=== PATIENT | female | born 1955 | race Caucasian/White ===

== ENCOUNTER 2025-05-03 18:11 | Inpatient (IN) | payer MEDICARE, SELFPAY ==
[2025-05-03] VITALS (7 sets, daily range): BP systolic 138–162; BP diastolic 61–101; BMI 19.5; BMI 19.3
--- NOTE | 2025-05-03 13:21 | ED.GENMED ---
History of Present Illness
<Giuliana Gurrola PA-C - Last Filed: 05/03/25 17:16>
General
Chief Complaint: Abdominal Symptoms
Source: patient
Exam Limitations: none
Time Seen by Provider: 05/03/25 13:10
History of Present Illness
History of Present Illness:
69yoF with a history of anxiety and GERD presenting for evaluation of abdominal pain. Patient has been experiencing epigastric discomfort for several years for which she takes Prilosec OTC. Her pain started to worsen over the past several weeks.
Her epigastric pain is constant but her pain intermittently radiates to the right upper quadrant and right shoulder region. Her right upper quadrant pain has occurred twice after eating beef. She is also having intermittent nausea and vomiting
with increased belching. She started to notice that her urine appeared dark 2 days ago. She denies any chest pain, shortness of breath, fevers. No prior abdominal surgeries.
Phy Exam
<Giuliana Gurrola PA-C - Last Filed: 05/03/25 17:16>
General Physical Exam
General Presentation: well appearing and no apparent distress
General Skin: warm and dry
General Habitus: normal
General Mental: alert
ENT Exam
ENT Exam: normocephalic
Cardiovascular Exam
Cardiovascular Exam: regular rate/rhythm
Pulmonary Exam
Pulmonary Exam: lungs clear, no respiratory distress, no rales, no crackles, no rhonchi and no wheezing
Gastrointestinal Exam
Gastrointestinal Exam: soft, non distended and other (+Tenderness in epigastric and RUQ. Abdomen soft, non-distended. No rebound or guarding.)
Neurological Exam
Neurological Exam: alert
Jose Coma Scale
Eye Opening: Spontaneous
Verbal Response: Oriented
Motor Response: Obeys Commands
GCS Total Score: 15
Skin Exam
Skin Exam: normal color and warm/dry
Psychiatric Exam
Psychiatric Exam: normal mood/affect
Course
<Giuliana Gurrola PA-C - Last Filed: 05/03/25 17:16>
Orders/Labs/Results
Orders:
Orders
05/03/25 13:06
Electrocardiogram (*1) Urgent
Reason for Study: Abdominal Pain
EKG- Treatment ONCE
05/03/25 13:31
CT Abd/pel W Iv And Oral Contr Urgent
Comment:
Reason For Exam: epigastric, RUQ pain
Iohexol [Omnipaque] See Protocol PO NOW STA
05/03/25 13:36
Complete Blood Count/With Diff Urgent
Comprehensive Metabolic Panel Urgent
Lipase Urgent
Troponin I Urgent
Urinalysis Reflex To Culture Urgent
Date Specimen was Collected: 05/03/25
Time Specimen was Collected: 13:35
Urine Microscopic Reflex Cult Urgent
Urine Culture Urgent
SEVEN Source: U
Specimen Description:
Date Specimen was Collected: 05/03/25
Time Specimen was Collected: 13:35
05/03/25 13:40
Prothrombin Time Urgent
05/03/25 14:18
0.9% Sodium Chloride 1000 ml [Nss] 1,000 ml IV BOLUS
05/03/25 14:19
Ondansetron Injectable [Zofran] 4 mg IV NOW STA
05/03/25 15:01
CDIFF [C difficile Antigen & Toxins] Urgent
SEVEN Source: Feces/Stool
Specimen Description:
Date Specimen was Collected: 05/03/25
Time Specimen was Collected: 14:59
Norovirus by PCR Urgent
SEVEN Source: Feces/Stool
Specimen Description:
Date Specimen was Collected: 05/03/25
Time Specimen was Collected: 14:59
Stool Culture Urgent
SEVEN Source: Feces/Stool
Specimen Description:
Date Specimen was Collected: 05/03/25
Time Specimen was Collected: 14:59
05/03/25 17:04
Piperacillin/Tazo 4.5 Gram [Zosyn] 4.5 gram in 100 ml IV NOW
Abnormal Lab Results
05/03/25
13:36
Hgb 16.5 H g/dL
(12.0-16.0)
Hct 48.4 H %
(37.0-47.0)
MCH 32.8 H pg
(27.0-31.0)
Monocytes % 9.4 H %
(1.7-9.3)
Creatinine 0.5 L mg/dL
(0.6-1.0)
Total Bilirubin 4.1 H mg/dl
(0.2-1.3)
AST 235 H U/L
(14-36)
ALT 201 H U/L
(0-35)
Alkaline Phosphatase 321 H U/L
(38-126)
Urine Ketones 1+ A
(Negative)
Ur Occult Blood Reflex 1+ A
(Negative)
Urine Nitrite (Reflex) Positive A
(Negative)
Urine Bilirubin 3+ A
(Negative)
Urine Urobilinogen 3+ A
(Neg - 1+)
Leukocyte Esterase Rfl 2+ A
(Negative)
Urine RBC 7-10 A /HPF
(0-2)
Urine WBC (Reflex) 11-15 A /HPF
(0-5)
Urine Bacteria (Reflex) Moderate A
(Negative)
Urine Albumin (Reflex) 2+ A
(Neg - Trace)
05/03/25 13:36
05/03/25 13:36
Vital Signs
Initial and Last Documented VS:
Initial Vital Signs
Temp Pulse Resp BP Pulse Ox
97.9 F 69 18 146/61 97
05/03/25 13:01 05/03/25 13:01 05/03/25 13:01 05/03/25 13:01 05/03/25 13:01
Last Documented Vital Signs
Temp Pulse Resp BP Pulse Ox
97.7 F 69 18 146/101 95
05/03/25 17:00 05/03/25 17:00 05/03/25 17:00 05/03/25 17:00 05/03/25 17:00
<Jan Stewart MD - Last Filed: 05/03/25 17:12>
Orders/Labs/Results
Orders:
Orders
05/03/25 13:06
Electrocardiogram (*1) Urgent
Reason for Study: Abdominal Pain
EKG- Treatment ONCE
05/03/25 13:31
CT Abd/pel W Iv And Oral Contr Urgent
Comment:
Reason For Exam: epigastric, RUQ pain
Iohexol [Omnipaque] See Protocol PO NOW STA
05/03/25 13:36
Complete Blood Count/With Diff Urgent
Comprehensive Metabolic Panel Urgent
Lipase Urgent
Troponin I Urgent
Urinalysis Reflex To Culture Urgent
Date Specimen was Collected: 05/03/25
Time Specimen was Collected: 13:35
Urine Microscopic Reflex Cult Urgent
Urine Culture Urgent
SEVEN Source: U
Specimen Description:
Date Specimen was Collected: 05/03/25
Time Specimen was Collected: 13:35
05/03/25 13:40
Prothrombin Time Urgent
05/03/25 14:18
0.9% Sodium Chloride 1000 ml [Nss] 1,000 ml IV BOLUS
05/03/25 14:19
Ondansetron Injectable [Zofran] 4 mg IV NOW STA
05/03/25 15:01
CDIFF [C difficile Antigen & Toxins] Urgent
SEVEN Source: Feces/Stool
Specimen Description:
Date Specimen was Collected: 05/03/25
Time Specimen was Collected: 14:59
Norovirus by PCR Urgent
SEVEN Source: Feces/Stool
Specimen Description:
Date Specimen was Collected: 05/03/25
Time Specimen was Collected: 14:59
Stool Culture Urgent
SEVEN Source: Feces/Stool
Specimen Description:
Date Specimen was Collected: 05/03/25
Time Specimen was Collected: 14:59
05/03/25 17:04
Piperacillin/Tazo 4.5 Gram [Zosyn] 4.5 gram in 100 ml IV NOW
Abnormal Lab Results
05/03/25
13:36
Hgb 16.5 H g/dL
(12.0-16.0)
Hct 48.4 H %
(37.0-47.0)
MCH 32.8 H pg
(27.0-31.0)
Monocytes % 9.4 H %
(1.7-9.3)
Creatinine 0.5 L mg/dL
(0.6-1.0)
Total Bilirubin 4.1 H mg/dl
(0.2-1.3)
AST 235 H U/L
(14-36)
ALT 201 H U/L
(0-35)
Alkaline Phosphatase 321 H U/L
(38-126)
Urine Ketones 1+ A
(Negative)
Ur Occult Blood Reflex 1+ A
(Negative)
Urine Nitrite (Reflex) Positive A
(Negative)
Urine Bilirubin 3+ A
(Negative)
Urine Urobilinogen 3+ A
(Neg - 1+)
Leukocyte Esterase Rfl 2+ A
(Negative)
Urine RBC 7-10 A /HPF
(0-2)
Urine WBC (Reflex) 11-15 A /HPF
(0-5)
Urine Bacteria (Reflex) Moderate A
(Negative)
Urine Albumin (Reflex) 2+ A
(Neg - Trace)
05/03/25 13:36
05/03/25 13:36
Vital Signs
Initial and Last Documented VS:
Initial Vital Signs
Temp Pulse Resp BP Pulse Ox
97.9 F 69 18 146/61 97
05/03/25 13:01 05/03/25 13:01 05/03/25 13:01 05/03/25 13:01 05/03/25 13:01
Last Documented Vital Signs
Temp Pulse Resp BP Pulse Ox
97.7 F 69 18 146/101 95
05/03/25 17:00 05/03/25 17:00 05/03/25 17:00 05/03/25 17:00 05/03/25 17:00
<Giuliana Gurrola PA-C - Last Filed: 05/03/25 17:16>
MDM/Problems Addressed
Differential Diagnosis Includes:
69yoF here with epigastric pain x several years which has been worsening for a few weeks. Now intermittently migrating to the RUQ. Also noticed dark urine x 2 days. VSS. She is nontoxic-appearing. No signs of peritonitis on abdominal exam.
Differential diagnosis includes but is not limited to: Biliary colic, cholecystitis, pancreatitis, malignancy, peptic ulcer disease
Initial ED plan: Check abdominal labs, troponin/EKG, UA, and CT abdomen.
<Giuliana Gurrola PA-C - Last Filed: 05/03/25 17:16>
*Pulse Oximetry
SaO2: 97
Oxygen Mode of Delivery: Room air
Patient hypoxic: no
*EKG
Interpreted by ED Provider?: Yes
EKG Intrepretation Date: 05/03/25
Heart Rate: 66
Rate: normal
Rhythm: sinus
[place]: left axis deviation
Interval: normal interval
QRS Pattern: right bundle branch block (incomplete)
Ischemia: no ischemia
*Critical Care Note
Total Time (30-74mins, 75-104mins- exclusive of procedures): Not Applicable
<Giuliana Gurrola PA-C - Last Filed: 05/03/25 17:16>
Update Note
Update Note:
Labs reveal a total bilirubin of 4.1, AST 235, and ALT 201. CT shows evidence of choledocholithiasis with partial biliary obstruction. No associated fever or leukocytosis but will cover with IV Zosyn. Patient admitted for GI evaluation and
possible ERCP.
ED Attending Note
<Giuliana Gurrola PA-C - Last Filed: 05/03/25 17:16>
-
Portions of this chart may have been created with voice recognition software.� Occasional wrong word or��sound alike� substitutions may have occurred due to the inherent limitations of voice recognition software.
<Jan Stewart MD - Last Filed: 05/03/25 17:12>
ED Attending Note
Patient seen and examined by attending physician: Yes
I performed the substantive portion of visit, reviewed & personally made and approve the management plan that is documented in note by myself or LEEANN.: Yes
ED Attending Note:
69-year-old female intermittent upper abdominal pain with radiation of the back for years. Has ignored this issue. The last few weeks symptoms have gotten worse. Some nausea at times. No fever. Intermittent nausea and vomiting with some
increasing belching and gas. On exam patient is nontoxic in no distress. She is in no respiratory distress. Abdomen is soft. Mild epigastric tenderness. No rebound or guarding no mass or hernia. Warm and dry. Perfusing well. Grossly nonfocal.
Labs show a elevated LFTs including bilirubin. CT scan shows choledocholithiasis causing a partial biliary obstruction. Intrahepatic and extrahepatic biliary dilatation. Mild hepatomegaly. Gastritis. Calcific plaque in the aorta. Impression is
choledocholithiasis. Admission for further care, GI consult. Antibiotic coverage fluids n.p.o. for now
Discharge Plan
Departure
Patient Disposition: Admit
Date of Disposition: 05/03/25
Time of Disposition: 17:02
Presentation/result/management discussed w/ accepting MD/DO: Hospitalist
Discharge Problem:
Choledocholithiasis
Prescriptions:
No Action
Theragen Tablet
1 tab PO DAILY
sertraline 50 mg tablet
50 mg PO DAILY
loratadine 10 mg Tablet
10 mg PO DAILY
omeprazole magnesium [Prilosec OTC] 20 mg Tablet,Delayed Release (Dr/Ec)
20 mg PO DAILYPRN PRN (Reason: reflux)
cholecalciferol (vitamin D3) 25 mcg (1,000 unit) Tablet,Chewable
25 mcg PO DAILY
Referrals:
NONE,* [Family Provider, Internal Medicine]
Interventions
Interventions:
*Risk Screen - Suicide Last Done: 05/03/25 13:01
*General Assessment Last Done: 05/03/25 13:01
*Neglect/Abuse Screening Last Done: 05/03/25 13:01
*ED- Fall Risk Assessment Last Done: 05/03/25 13:32
*ED COVID-19 Vaccine History Last Done: 05/03/25 13:31
*ED Influenza Vaccine History Last Done: 05/03/25 13:31
NG-Wpmhqu-Qdoacgadvb Assessment Last Done: 05/03/25 13:23
Discharge Date and Time
Print Language: SPANISH
[2025-05-03] MEDS: OMNIPAQUE 50 ML PO (13:57)
[2025-05-03 14:11] LABS: Urine Character Slightly Cloudy (Clear)
[2025-05-03 14:21] LABS: ALT (SGPT) 201 U/L (0-35); AST (SGOT) 235 U/L (14-36); Albumin 4.3 g/dl (3.5-5.0); Alkaline Phosphatase 321 U/L (38-126); Blood Urea Nitrogen 8 mg/dl (7-17); Calcium 10.1 mg/dl (8.4-10.2); Carbon Dioxide 28 mmol/L (22-30); Chloride 103 mmol/L (98-107); Estimated Creatinine Clearance 73 ml/min; Glucose 93 mg/dl (70-99); Lipase 100 U/L (23-300); Potassium 3.8 mmol/L (3.5-5.1); Sodium 138 mmol/L (135-145); Total Protein 7.4 g/dl (6.3-8.2); eGFR > 60.00
[2025-05-03] MEDS: NSS 1000 IV (14:21)
[2025-05-03] MEDS: ZOFRAN 4 MG IV (14:23)
[2025-05-03 14:30] LABS: Urine Urothelial Cell 0-2 /LPF (FEW)
[2025-05-03 14:32] LABS: Hematocrit 48.4 % (37.0-47.0); Hemoglobin 16.5 g/dL (12.0-16.0); Mean Corp Hgb Conc. 34.1 g/dL (33.0-37.0); Mean Corpuscular Volume 96.2 fL (81.0-99.0); Nucleated Red Blood Cells % 0 %; Platelet Count 151 10^3/uL (130-400); Red Cell Dist. Width 13.2 % (11.5-14.5); Troponin I < 0.012 ng/ml
[2025-05-03 14:55] LABS: INR 0.92; PT 12.7 Sec (11.4-14.6)
[2025-05-03] MEDS: ZOSYN 100 IV (17:13)
--- NOTE | 2025-05-03 17:33 | HPS.HSE ---
Family Physician
-
Family Physician: * NONE
Chief Complaint
-
abdominal pain
History of Present Illness
69-year-old female past medical history of anxiety, GERD presenting for abdominal pain. She has been having epigastric discomfort secondary to GERD for several years for which she takes Prilosec. Her pain started to get worse over the past several
weeks. Epigastric pain is constant but her pain intermittently radiates to the right upper quadrant and to the back. She has had right upper quadrant pain twice after eating beef. She has intermittent nausea and vomiting with increased belching.
She noticed her urine appeared dark 2 days ago. Denies chest pain or shortness of breath or fever. She has been having intermittent diarrhea for the past 6 months that was particularly severe today. Diarrhea is watery. Her stools have also
recently been director business management. Denies fevers or chills.
She denies any burning with urination suprapubic pain or frequency. She denies any prior history of UTIs.
No family history of gallbladder disease.
She smokes under a pack of cigarettes per day. She drinks 2-3 drinks of alcohol per day.
Medical History
Past Medical History
Past Medical History: Reports Other (anxiety, GERD)
Past Surgical History: Reports Other (Bilateral hip surgery, thumb surgery)
Social History
Tobacco: Non-smoker
Alcohol: None
Drug: None
Family History
Family History: Not pertinent
Allergies / Home Medications
Allergies reflects when Allergies were last updated in [employer].
Home Medications with original date entered in [employer]
Allergy/Medication List:
Allergies
Allergy/AdvReac Type Severity Reaction Status Date / Time
No Known Allergies Allergy Unverified 05/03/25 13:05
Home Medications
cholecalciferol (vitamin D3) 25 mcg (1,000 unit) chewable tablet 25 mcg PO DAILY 05/03/25
loratadine 10 mg tablet 10 mg PO DAILY 05/03/25
omeprazole magnesium 20 mg tablet,delayed release (Prilosec OTC) 20 mg PO DAILYPRN PRN reflux 05/03/25
sertraline 50 mg tablet 50 mg PO DAILY 05/03/25
therapeutic multivitamin 1 tab PO DAILY 05/03/25
Review of Systems
-
History Source: Patient
A 12 point ROS was completed and negative except as noted: Yes
Constitutional: Reports No Symptoms
EENT: Reports No Symptoms
Respiratory: Reports No Symptoms
Cardiac: Reports No Symptoms
Abdomen/GI: Reports See HPI
: Reports No Symptoms
Musculoskeletal: Reports No Symptoms
Skin: Reports No Symptoms
Neurological: Reports No Symptoms
Endocrine: Reports No Symptoms
Hematologic/Lymphatic: Reports No Symptoms
Psych: Reports No Symptoms
Physical Exam
Vital Signs
Vital Signs
Temp Pulse Resp BP Pulse Ox
97.7 F 69 18 146/101 95
05/03/25 17:00 05/03/25 17:00 05/03/25 17:00 05/03/25 17:00 05/03/25 17:00
Physical Exam
General: Well Developed, Well Nourished and No Apparent Distress
HEENT: NormoCephalic, Moist mucous membranes and Atraumatic
Respiratory: Clear
Cardiac: S1/S2 and Regular Rhythm; No Murmur or Rub
GI: Soft, Non Distended, Normal Bowel Sounds and Tender (RUQ ); No Organomegaly
Rectal: Deferred by Provider
Musculoskeletal: No Clubbing, No Cyanosis and No Edema
Skin: No Rash
Neuro: Nonfocal/grossly intact
Laboratory Results
-
05/03/25 13:36
05/03/25 13:36
Laboratory Results
PT 12.7 Sec (11.4-14.6) 05/03/25 13:40
INR 0.92 05/03/25 13:40
Total Bilirubin 4.1 mg/dl (0.2-1.3) H 05/03/25 13:36
AST 235 U/L (14-36) H 05/03/25 13:36
ALT 201 U/L (0-35) H 05/03/25 13:36
Alkaline Phosphatase 321 U/L (38-126) H 05/03/25 13:36
Troponin I < 0.012 ng/ml 05/03/25 13:36
Lipase 100 U/L (23-300) 05/03/25 13:36
Data Reviewed
-
Lab Data: Labs Reviewed by me
Old Records: Reviewed
Impression/Plan
-
IMPRESSION:
PLAN:
# Acute choledocholithiasis
- Bilirubin of 4, transaminitis
- CT abdomen pelvis shows choledocholithiasis causing partial biliary obstruction, mild intrahepatic and extrahepatic biliary dilatation, mild hepatomegaly, wall thickening in the gastric antrum suggesting gastritis, significant atherosclerotic
plaque in the abdominal aorta,
- Clear liquid diet
-IV fluids given
-Given Zosyn, continue for now
- GI consulted
# Acute on chronic diarrhea
- C. difficile, norovirus, stool culture pending
# Asymptomatic pyuria
- No urinary symptoms apart from dark urine secondary to hyperbilirubinemia
- On Zosyn for choledocholithiasis
GERD
- Continue omeprazole
Anxiety
- Continue sertraline
Daily alcohol user
- Monitor for withdrawal
Smoker
- Nicotine patch
Full code
DVT prophylaxis�heparin
Clear liquid diet
[2025-05-03] MEDS: HEPARIN 5000 UNITS SC (22:27)
[2025-05-03] MEDS: NICODERM TRANSDERMAL 14 MG TRANSDERM (22:27)
[2025-05-03] MEDS: DILAUDID 0.5 MG IV (22:27)
[2025-05-03] MEDS: ZOSYN 50 IV (23:53)
[2025-05-04 00:23] LABS: GGTP 990 U/L (12-43); Magnesium 1.7 mg/dl (1.6-2.3)
--- NOTE | 2025-05-04 05:05 | PTCARENOTE ---
Pt. received from ED via stretcher. Patient walked from stretcher to bed. Alert oriented and calm. Patient complains of pain in middle quadrant radiating to right upper quadrant. see Mar.
[2025-05-04] MEDS: ZOSYN 50 IV ×4 (05:58→23:12)
[2025-05-04 06:29] LABS: Urine Character Clear (Clear)
[2025-05-04 06:38] LABS: Urine Red Blood Cell 0-2 /HPF (0-2)
[2025-05-04 07:55] VITALS: BP 145/73
[2025-05-04 08:18] LABS: ALT (SGPT) 123 U/L (0-35); AST (SGOT) 90 U/L (14-36); Albumin 3.4 g/dl (3.5-5.0); Alkaline Phosphatase 240 U/L (38-126); Blood Urea Nitrogen 7 mg/dl (7-17); Calcium 9.3 mg/dl (8.4-10.2); Carbon Dioxide 24 mmol/L (22-30); Chloride 106 mmol/L (98-107); Estimated Creatinine Clearance 72 ml/min; Glucose 71 mg/dl (70-99); Potassium 3.7 mmol/L (3.5-5.1); Sodium 136 mmol/L (135-145); Total Protein 5.9 g/dl (6.3-8.2); eGFR > 60.00
[2025-05-04 08:31] LABS: Hematocrit 44.0 % (37.0-47.0); Hemoglobin 14.9 g/dL (12.0-16.0); Mean Corp Hgb Conc. 33.9 g/dL (33.0-37.0); Mean Corpuscular Volume 98.2 fL (81.0-99.0); Red Cell Dist. Width 13.1 % (11.5-14.5)
[2025-05-04 08:58] LABS: Hepatitis C Antibody Negative (Negative)
[2025-05-04] MEDS: NICODERM TRANSDERMAL 14 MG TRANSDERM (09:16)
[2025-05-04] MEDS: CLARITIN 10 MG PO (09:16)
[2025-05-04] MEDS: HEPARIN 5000 UNITS SC ×3 (09:18→23:12)
[2025-05-04] MEDS: THIAMINE INJECTION 200 MG IV ×2 (09:18→19:55)
[2025-05-04] MEDS: THERAGRAN 1 TABLET PO (09:19)
[2025-05-04] MEDS: ZOLOFT 50 MG PO (09:19)
[2025-05-04] MEDS: FOLVITE 1 MG PO (09:19)
[2025-05-04] MEDS: VITAMIN D3 (cholecalciferol) 25 MCG PO (09:20)
--- NOTE | 2025-05-04 09:35 | W.PN.HOSP.TC ---
Addendum entered and electronically signed by Bucky Pollack MD 05/04/25 10:17:
#Daily alcohol use
Thiamine/folate
no abuse reported
watch for withdrawal
Original Note:
Today's Communication/Plan
-
see PN
Assessment / Plan
Assessment / Plan
69yo F with PMHX of GERD, anxiety, severe claustrophobia, chronic epigastric pain came with worsening abd pain with diarrhea, now pain moved to RUQ and radiating to the back, found choledocholithiaissi on CT with concern for cholangitis
Accidental findings of R lung nodule
A/P:
#Choledocholithiasis cannot exclude cholangitis
#HX of gastritis
Patient cannot tolerate MRI even with sedation
Zosyn
GI consult
follow LFT
cont PPI
#Leukopenia
monitor
#DIarrhea
C.diff and norovirus neg
Stool Cx pending
IVF
#1.1 x 0.7 cm nodular opacity in the right middle lobe
Unknown to patient
Pulm consult
#Low magnesium
at 1.7
replete since with diarrhea and IVF expected further loss
#ASCVD
#DJD
#Hx of b/l JENNIFER
Check LDL, consider statin
#Anxiety d/o
#NIcotine dependency
advised smoking cessation
Nicoderm
DVTppx hep
Full code
I have spent at least 55min reviewing chart, test results, communication with consultants and providing direct patient care
Anticipated Discharge: > 48 hours
Subjective/Interval History
-
Date of Service: May 04, 2025
Objective Data
-
Labs:
Laboratory Results
05/04/25
07:00
WBC 4.0 L
Hgb 14.9
Hct 44.0
Plt Count Pending
Sodium 136
Potassium 3.7
Chloride 106
Carbon Dioxide 24
BUN 7
Creatinine 0.6
Glucose 71
Calcium 9.3
Total Bilirubin 2.0 H D
AST 90 H
ALT 123 H
Alkaline Phosphatase 240 H
Vital Signs:
Vital Signs
Temp Pulse Resp BP Pulse Ox
98.4 F 59 16 145/73 94
05/04/25 07:55 05/04/25 07:55 05/04/25 07:55 05/04/25 07:55 05/04/25 07:55
I&O
05/03/25 05/04/25 05/05/25
06:59 06:59 06:59
Intake Total 1080 / 1080
Balance 1080 / 1080
Review of Systems
-
History Source: Patient
All other systems: Reviewed and negative
Abdomen/GI: Reports Abdominal Pain and Diarrhea
Physical Exam
-
General: Well Developed, Well Nourished and No Apparent Distress
HEENT: Normocephalic
Respiratory: Clear to Auscultation
GI: Soft, Nondistended and Tender (RUQ)
Skin: Warm
Neuro: Awake, Alert, Oriented and AO x 3
Psych: Calm
[2025-05-04 10:07] LABS: HDL Cholesterol 64 mg/dl; LDL Cholesterol, Calculated 92 mg/dl; Very Low Density Lipoprotein 30 mg/dl (0-30)
[2025-05-04] MEDS: HEPARIN SC (10:49)
[2025-05-04] MEDS: MAGNESIUM SULFATE 50 IV (10:50)
[2025-05-04 12:25] LABS: Nucleated Red Blood Cells % 0 %
[2025-05-04 12:26] LABS: Platelet Count 115 10^3/uL (130-400)
[2025-05-04] MEDS: MORPHINE SULFATE 2 MG IV (12:47)
--- NOTE | 2025-05-04 13:00 | CON.PUL ---
Addendum entered and electronically signed by Elly Ferrara MD 05/04/25 13:13:
Additional workup including CT chest, pulmonary function testing and possibly bronchoscopy as outpatient
Patient counseled regarding need for outpatient follow-up.
Pulmonary team will sign off. Please call as needed
Original Note:
Consultation
Consultation Request
Date/Time Consultation Requested: 05/04/2025
Date/Time Consultation Performed: 05/04/2025
Medical History
-
Chief Complaint: Abdominal pain
History of Present Illness:
Patient is a very pleasant 69-year-old female with no known pulmonary disease who presented to the hospital with abdominal pain. Patient has longstanding history of gastroesophageal reflux disease and developed worsening abdominal discomfort with
the right upper quadrant radiation as well as to the back. Patient was evaluated in the emergency room and had a CT scan performed which was suggestive of choledocholithiasis along with abnormal LFTs. Patient was admitted to the hospitalist
service and gastroenterology consultation awaited. Her CT abdomen pelvis included limited view of lungs and was suggestive of 1.2 cm right lower lobe pulmonary nodule. Pulmonary consultation was consulted to comment on the incidental pulmonary
nodule finding.
Patient reports that she has been smoking since age 14, a little less than a pack a day. Close to [id number] smoking history. Does report some mild exertional shortness of breath. Also reports occasional cough and sometimes phlegm production in
the mornings. Does not report any wheezing episodes. Has not been on any inhaler therapy. Patient reports having seen a back winder many years ago after she developed a certain chemical that she is . She does not have any ongoing follow-up
with pulmonary clinic. No reported pleuritic discomfort or hemoptysis. Weight has been stable except for recent weight loss of about 4 pounds within the last month.
Past Medical History
Past Medical History: Reports Other (anxiety, GERD)
Past Surgical History: Reports Other (Bilateral hip surgery, thumb surgery)
Social History
Patient started smoking at age 14, smokes a little less than a pack a day, close to [id number] smoking history. Patient has cats and dogs at home. Does not report any exposure to birds. 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 No reported exposure to multiple chemicals.
Drug: None
Family History
Family History: Reported history of COPD and possibly lung cancer in patient's mother.
Allergies / Home Medications
Allergies
Allergy/AdvReac Type Severity Reaction Status Date / Time
No Known Allergies Allergy Unverified 05/03/25 13:05
Home Medications
�Medication �Instructions �Recorded �Confirmed �Last Taken �Type
cholecalciferol (vitamin D3) 25 25 mcg PO DAILY Supplement 05/03/25 05/03/25 05/03/25 History
mcg (1,000 unit) chewable tablet
loratadine 10 mg tablet 10 mg PO DAILY Allergies 05/03/25 05/03/25 05/02/25 History
omeprazole magnesium 20 mg 20 mg PO DAILYPRN PRN reflux 05/03/25 05/03/25 Unknown History
tablet,delayed release (Prilosec
OTC)
sertraline 50 mg tablet 50 mg PO DAILY Mental 05/03/25 05/03/25 05/03/25 History
Health/Anxiety
therapeutic multivitamin 1 tab PO DAILY Supplement 05/03/25 05/03/25 05/02/25 History
Review of Systems
-
Hematologic/Lymphatic: Other (All 14 systems reviewed and negative except as stated above in the history of present illness.)
Vitals / Labs / Diagnostic Testing
Vital Signs
Temp Pulse Resp BP Pulse Ox
98.4 F 59 16 145/73 94
05/04/25 07:55 05/04/25 07:55 05/04/25 07:55 05/04/25 07:55 05/04/25 07:55
Lab Data
05/04/25 07:00
05/04/25 07:00
Laboratory Results
05/03/25
13:40
PT 12.7
INR 0.92
Microbiology
05/03/25 13:36 Urine Urine Culture - Final
05/03/25 15:01 Feces/Stool Salmonella/Shigella Culture - Preliminary
Culture in Progress
05/03/25 15:01 Feces/Stool Campylobacter Culture - Preliminary
Culture in Progress
05/03/25 15:01 Feces/Stool C. difficile GDH Antigen & Toxins - Final
Negative for toxigenic C.difficile
05/03/25 15:01 Feces/Stool - Final
Negative for Norovirus GI and GII.
Diagnostic Testing:
Physical Exam
-
HEENT: Normocephalic
Cardiovascular: S1/S2
Respiratory: Clear and Non-Labored Respirations
GI: Soft
Neurology: Awake and Alert
Skin: Warm
General: Comfortable
Assessment
-
#1. Pulmonary nodule, newly detected
- Patient had CT abdomen pelvis with incidental finding of 1.1 cm nodule in the right middle lobe.
- With longstanding history of smoking, malignancy is certainly high in differential diagnosis
- Current imaging is limited and does not include all of the lungs. Patient will need dedicated CT chest with Ion protocol for further evaluation
- This can be pursued as outpatient. Will follow-up in pulmonary clinic in 2 weeks time. Counseled patient extensively regarding need for outpatient follow-up for this nodule considering her longstanding history of smoking and risk of lung cancer
- Depending upon CT chest, patient might need robotic bronchoscopy and EBUS TBNA for further analysis. Further workup will be pursued as outpatient
#2. History of smoking, suspect underlying COPD
- Patient reports longstanding history of smoking, occasional exertional shortness of breath. Also reports some phlegm production in the mornings.
- Has not been on any inhaler therapy, might have underlying COPD/emphysema
- Will pursue further testing with pulmonary function testing, 6-minute walk test, spirometry, lung volumes and DLCO assessment as outpatient
- Considering minimal symptom load, hold off initiating inhaler therapy for now
- Counseled patient regarding association between smoking and lung cancer. She is motivated to quit and reports having brought nicotine replacement patches.
Other medical diagnoses:
- GERD
- Anxiety
- Choledocholithiasis, currently on antibiotic and await GI input
- History of alcohol use
Pulmonary team will sign off, will pursue additional workup and follow-up as outpatient. Information left in the discharge section. Patient expressed understanding regarding need for close follow-up as outpatient.
Total time spent on this consultation/encounter __62__ minutes which includes review of history, physical exam, medications, laboratory data, personal review of imaging, extensive review of outpatient records, discussion with care team and
respiratory therapy.
Data:
CT A/P 04/2025: 1. CHOLEDOCHOLITHIASIS causing a partial biliary obstruction.
2. Mild intrahepatic and extrahepatic biliary dilatation.
3. Mild hepatomegaly.
4. Mild wall thickening in the gastric antrum suggesting gastritis.
5. Severe calcific atherosclerotic plaque in the abdominal aorta.
6. Moderate multilevel lumbar discogenic degenerative disease.
7. Bilateral total hip arthroplasties in place.
8. 1.1 cm nodule opacity in the right middle lobe
--- NOTE | 2025-05-04 14:26 | CON.GI ---
Consultation
-
Date/Time Consultation Requested: 05/03/2025, 9:45pm
Date/Time Consultation Performed: 05/04/2025, 3pm
Requesting Provider: Dr. Borden
Performing Provider: Dr. Kendall
Reason for Consultation: choledocholithiasis
Medical History
Chief Complaint / HPI
Chief Complaint: abd pain
History of Present Illness:
This is a 69-year-old female past medical history of anxiety, reflux, alcohol use presenting with abdominal pain. Patient having intermittent episodes of epigastric pain, right upper quadrant that radiates to back after having cheese steak 1
episode and she has burger another episode. Having nausea and vomiting with the abdominal pain, no fevers or chills. Also noticed dark urine. Urine is no longer as dark as it was when she first came in and pain is improved. Having diarrhea on
and off for months. Positive urgency, incontinence, no blood in the stool. Having upward of 6 bowel movements a day. Here in the hospital, her diarrhea has slowed down. Never had a colonoscopy. Also having dysphagia to food and liquids which
has progressively gotten worse. She has lost 4 to 5 pounds in the last few weeks which she attributes to the abdominal pain.
She was found on admission to have elevated bilirubin initially 4.1, repeat today 2.0, GGT 990, AST 235, ALT 201, alkaline phosphatase 321. CT abdomen pelvis was done and showed choledocholithiasis with partial biliary obstruction, mild intra and
extrahepatic grisel dil, mild hepatomegaly, gastritis, plaque in the aorta, degenerative disc disease, hip arthroplasty, nodule in the lung.
Patient smokes less than 1 pack a day and drinks 3 drinks a day.
Past Medical History
Past Medical History: GERD and Psychiatric (anxiety)
Past Surgical History: Orthopedic (hip, thumb)
Social History
Tobacco: Smoker
Alcohol: Daily
Drug: None
Family History
Family History: Reviewed & Not Pertinent
Allergies / Home Medications
Allergy/AdvReac Type Severity Reaction Status Date / Time
No Known Allergies Allergy Unverified 05/03/25 13:05
�Medication �Instructions �Recorded
cholecalciferol (vitamin D3) 25 25 mcg PO DAILY Supplement 05/03/25
mcg (1,000 unit) chewable tablet
loratadine 10 mg tablet 10 mg PO DAILY Allergies 05/03/25
omeprazole magnesium 20 mg 20 mg PO DAILYPRN PRN reflux 05/03/25
tablet,delayed release (Prilosec
OTC)
sertraline 50 mg tablet 50 mg PO DAILY Mental 05/03/25
Health/Anxiety
therapeutic multivitamin 1 tab PO DAILY Supplement 05/03/25
Review of Systems
-
All other systems: A 12 pt ROS was Negative except as stated above in HPI
Vital Signs
Temp Pulse Resp BP Pulse Ox
98.4 F 59 16 145/73 94
05/04/25 07:55 05/04/25 07:55 05/04/25 07:55 05/04/25 07:55 05/04/25 07:55
Physical Exam
Exam
General: Well Developed
HEENT: Normocephalic
Respiratory: Clear
Cardiac: S1/S2
GI: Non Tender and Non Distended
Musculoskeletal: No Clubbing
Skin: Warm
Neuro: AO x 3
Hematologic/Lymphatic: No Lymphadenopathy
Psych: Calm
Results
WBC 4.0 10^3/uL (4.8-10.8) L 05/04/25 07:00
Hgb 14.9 g/dL (12.0-16.0) 05/04/25 07:00
Hct 44.0 % (37.0-47.0) 05/04/25 07:00
MCV 98.2 fL (81.0-99.0) 05/04/25 07:00
Plt Count 115 10^3/uL (130-400) L D 05/04/25 07:00
Absolute Neuts (auto) 2.2 10^3/uL (1.4-6.5) 05/04/25 07:00
PT 12.7 Sec (11.4-14.6) 05/03/25 13:40
INR 0.92 05/03/25 13:40
Sodium 136 mmol/L (135-145) 05/04/25 07:00
Potassium 3.7 mmol/L (3.5-5.1) 05/04/25 07:00
Chloride 106 mmol/L (98-107) 05/04/25 07:00
Carbon Dioxide 24 mmol/L (22-30) 05/04/25 07:00
BUN 7 mg/dl (7-17) 05/04/25 07:00
Creatinine 0.6 mg/dL (0.6-1.0) 05/04/25 07:00
Calcium 9.3 mg/dl (8.4-10.2) 05/04/25 07:00
Total Bilirubin 2.0 mg/dl (0.2-1.3) H D 05/04/25 07:00
AST 90 U/L (14-36) H 05/04/25 07:00
ALT 123 U/L (0-35) H 05/04/25 07:00
Alkaline Phosphatase 240 U/L (38-126) H 05/04/25 07:00
Lipase 100 U/L (23-300) 05/03/25 13:36
Hepatitis C Antibody Negative (Negative) 05/04/25 07:00
Diagnostic Image Results:
Prior GI Procedures:
EGD:
Colonoscopy:
Assessment / Plan
-
69-year-old female past medical history of reflux on PPI and daily alcohol use and smoker presenting with abdominal pain and elevated bilirubin and transaminitis and CT with choledocholithiasis. Also with chronic diarrhea and dysphagia.
I will d/w Dr. Madison re: ERCP tomorrow - perhaps best to do EUS first may have passed a stone as pain and bili both improving. She does need an EGD as well given dysphagia. Discussed with patient risk, alternatives, benefits of EGD/EUS/ERCP
including but not limited to risks bleeding, infection, perforation, pancreatitis.
Will also need eventual CCY discussed today will consult gen surg tomorrow.
In regards to diarrhea, if the stool studies are negative, recommend checking fecal calprotectin, fecal fat, celiac, thyroid. This is more of a chronic issue for her, needs outpatient GI follow up and cscope.
Pulmonary was consulted regarding the nodule. Plan for outpatient follow-up which has been set up.
-
-
Thank you for consultation and allowing me to participate in the patient's care. Please call the lease administration supervisor GI physician during the after hours with any questions or concerns.
[2025-05-04 15:35] VITALS: BP 142/73
[2025-05-04] MEDS: MORPHINE SULFATE 4 MG IV (22:11)
[2025-05-04 23:27] VITALS: BP 148/65
[2025-05-05] VITALS (14 sets, daily range): BP systolic 104–150; BP diastolic 49–79; BMI 19.3
[2025-05-05] MEDS: ZOSYN 50 IV ×4 (05:28→23:00)
[2025-05-05] MEDS: ZOLOFT 50 MG PO (08:02)
[2025-05-05] MEDS: CLARITIN 10 MG PO (08:02)
[2025-05-05] MEDS: VITAMIN D3 (cholecalciferol) 25 MCG PO (08:02)
[2025-05-05] MEDS: NICODERM TRANSDERMAL 14 MG TRANSDERM (08:02)
[2025-05-05] MEDS: THERAGRAN 1 TABLET PO (08:02)
[2025-05-05] MEDS: HEPARIN SC (08:02)
[2025-05-05] MEDS: FOLVITE 1 MG PO (08:02)
[2025-05-05] MEDS: THIAMINE INJECTION 200 MG IV ×2 (08:03→20:22)
[2025-05-05 08:31] LABS: Hematocrit 49.0 % (37.0-47.0); Hemoglobin 16.5 g/dL (12.0-16.0); Mean Corp Hgb Conc. 33.7 g/dL (33.0-37.0); Mean Corpuscular Volume 98.6 fL (81.0-99.0); Nucleated Red Blood Cells % 0 %; Platelet Count 156 10^3/uL (130-400); Red Cell Dist. Width 12.7 % (11.5-14.5)
--- NOTE | 2025-05-05 08:31 | W.PN.HOSP.TC ---
Today's Communication/Plan
-
For laparoscopic cholecystectomy with cholangiogram today
Assessment / Plan
Assessment / Plan
69yo F with PMHX of GERD, anxiety, severe claustrophobia, chronic epigastric pain came with worsening abd pain with diarrhea, now pain moved to RUQ and radiating to the back, found choledocholithiaissi on CT with concern for cholangitis
Accidental findings of R lung nodule
A/P:
#Possible cholecystitis
#Choledocholithiasis cannot exclude cholangitis
#History of gastritis
Patient cannot tolerate MRI even with sedation
Appreciate GI and general surgery input, for laparoscopic cholecystectomy with cholangiogram today
Continue IV Zosyn, PPI
#Leukopenia
Monitor
#DIarrhea
C.diff and norovirus neg
Stool Cx NTD
Supportive care
#1.1 x 0.7 cm nodular opacity in the right middle lobe
Unknown to patient
Seen by pulmonology, who recommends additional workup including CT chest, pulmonary function testing and possibly bronchoscopy as outpatient
#ASCVD
LDL 92
#DJD
#Hx of b/l JENNIFER
#Anxiety d/o
Continue SSRI
#Nicotine dependency
Advised smoking cessation
Nicoderm
DVT prophylaxis�subcu Lovenox
Full code
Total time spent to see the patient on the floor, examine the patient, review data and lab results, discuss treatment plan with patient, nursing staff around 39 minutes.
Physical Exam
General: No acute distress
HEENT: Normocephalic, Atraumatic, EOMI, MMM
Respiratory: Clear to Auscultation bilaterally
Cardiac: Normal S1/S2, Regular Rate and Rhythm
GI: Soft, tenderness at the right upper quadrant and epigastrium, nondistended, Normal Bowel Sounds
Extremities: No Clubbing, Cyanosis, or Edema
Neuro: Nonfocal/Grossly Intact
Psych: Calm, Cooperative
Derm: No Visible lesions
Anticipated Discharge: Within 24 hours
Subjective/Interval History
-
Date of Service: May 05, 2025
Patient denies abdominal pain currently. Denies chest pain, denies shortness of breath. No fever, no vomiting.
Objective Data
-
Labs:
Laboratory Results
05/05/25
07:43
WBC Pending
Hgb Pending
Hct Pending
Plt Count Pending
Sodium Pending
Potassium Pending
Chloride Pending
Carbon Dioxide Pending
BUN Pending
Creatinine Pending
Glucose Pending
Calcium Pending
Total Bilirubin Pending
AST Pending
ALT Pending
Alkaline Phosphatase Pending
Vital Signs:
Vital Signs
Temp Pulse Resp BP Pulse Ox
98.0 F 59 18 148/65 97
05/04/25 23:27 05/04/25 23:27 05/04/25 23:27 05/04/25 23:27 05/04/25 23:27
I&O
05/04/25 05/05/25 05/06/25
06:59 06:59 06:59
Intake Total 1080 / 1080 1360 / 1360
Balance 1080 / 1080 1360 / 1360
[2025-05-05 08:41] LABS: ALT (SGPT) 94 U/L (0-35); AST (SGOT) 53 U/L (14-36); Albumin 4.0 g/dl (3.5-5.0); Alkaline Phosphatase 248 U/L (38-126); Blood Urea Nitrogen 7 mg/dl (7-17); Calcium 9.5 mg/dl (8.4-10.2); Carbon Dioxide 27 mmol/L (22-30); Chloride 102 mmol/L (98-107); Estimated Creatinine Clearance 72 ml/min; Glucose 58 mg/dl (70-99); Potassium 4.1 mmol/L (3.5-5.1); Sodium 139 mmol/L (135-145); Total Protein 6.6 g/dl (6.3-8.2); eGFR > 60.00
--- NOTE | 2025-05-05 10:03 | CON.GS ---
Addendum entered and electronically signed by Henri Biswas MD 05/05/25 10:57:
I saw and examined the patient independently.
The Drapery Hanger's note was reviewed and I agree with the note, assessment and plan except where noted below.
Comment: This is a 69-year-old female with a history significant for active smoker, bilateral hip surgery, GERD, intermittent dysphagia of unclear etiology as well as epigastric pain who presents with a few days of right upper quadrant pain after
eating a cheese steak. Tender to palpation on exam in the right upper quadrant with a positive Cristina sign. Elevated LFTs though downtrending. Cholelithiasis as well as possible choledocholithiasis identified.
Given her tenderness on exam, I have a suspicion for acute cholecystitis plus or minus choledocholithiasis.
Will plan for laparoscopic cholecystectomy with cholangiogram. We also discussed the possible need for adjunctive procedures such as transcystic common bile duct exploration versus ERCP depending on if there is residual stone burden in the CBD and
to what extent. Patient to is amenable to surgery first and potential ERCP afterwards if required.
N.p.o., IV fluids, IV antibiotics.
Risks/Benefits/Alternatives, expected postoperative course and possible complications (bleeding, infection, injury to surrounding structures, acute/chronic pain) discussed at length. Patient wishes to proceed with surgery. All questions answered.
Consent obtained.
I spent 60 minutes in total for the care of this patient today including direct patient care and counseling, reviewing labs, imaging, coordination of care, as well as documentation.
Original Note:
Consultation
-
Date/Time Consultation Performed: 05/05/25 0745
Medical History
-
Chief Complaint: RUQ/epigastric pain
History of Present Illness:
Ms Graham is a 69 yo female <1ppd smoker with a h/o bilateral hip surgery and GERD who presented with intermittent epigastric pain radiating into her back and RUQ over the past several years with recent worsening in the last few weeks. Her pain
worsened and became more constant after having a cheesesteak but then resolved and returned after she had a hamburger with associated nausea and vomiting causing her to present for evaluation. She notes that sometimes after meals, she feels this
'bubble' sensation in her epigastrium which is quite uncomfortable and then she feels as though the food is not quite going down. She also notes intermittent diarrhea over the last few months. She reports that the pain is better but still present
with RUQ tenderness and +Cristina's on exam. She denies fevers or chills.
Past Medical History
Past Medical History: GERD, HTN and Psychiatric (anxiety/depression)
Past Surgical History: Orthopedic (Bilateral hip, thumb )
Social History
Tobacco: Smoker (<1ppd)
Alcohol: Daily (x3)
Living: Alone (with 9 dogs and 1 cat)
Family History
Family History: Reviewed & Not Pertinent
Allergies / Home Medications
Allergy/AdvReac Type Severity Reaction Status Date / Time
No Known Allergies Allergy Unverified 05/03/25 13:05
�Medication �Instructions �Recorded �Confirmed �Type
cholecalciferol (vitamin D3) 25 25 mcg PO DAILY Supplement 05/03/25 05/03/25 History
mcg (1,000 unit) chewable tablet
loratadine 10 mg tablet 10 mg PO DAILY Allergies 05/03/25 05/03/25 History
omeprazole magnesium 20 mg 20 mg PO DAILYPRN PRN reflux 05/03/25 05/03/25 History
tablet,delayed release (Prilosec
OTC)
sertraline 50 mg tablet 50 mg PO DAILY Mental 05/03/25 05/03/25 History
Health/Anxiety
therapeutic multivitamin 1 tab PO DAILY Supplement 05/03/25 05/03/25 History
Review of Systems
-
History Source: Patient
All other systems: Negative unless noted
A 10 point review of systems was completed, and was negative except as per HPI.
Physical Exam
Vital Signs
Temp Pulse Resp BP Pulse Ox
97.9 F 60 18 146/66 94
05/05/25 08:39 05/05/25 08:39 05/05/25 08:39 05/05/25 08:39 05/05/25 08:39
05/04/25 05/05/25 05/06/25
06:59 06:59 06:59
Actual Weight 51.075 kg
Body Mass Index (BMI) 19.3
Lab Results
05/05/25 07:43
05/05/25 07:43
WBC 4.4 10^3/uL (4.8-10.8) L 05/05/25 07:43
Hgb 16.5 g/dL (12.0-16.0) H 05/05/25 07:43
Hct 49.0 % (37.0-47.0) H 05/05/25 07:43
Plt Count 156 10^3/uL (130-400) D 05/05/25 07:43
Abs Immat Gran (auto) 0.0 10^3/uL (0-0.05) 05/05/25 07:43
Neutrophils % 53.1 % (42.2-75.2) 05/05/25 07:43
Physical Exam
General: Well Developed and Well Nourished
HEENT: Moist Mucous Membranes
Respiratory: Non Labored Respirations
GI: Soft, Non Distended and Tender (RUQ, +Cristina's)
Neuro: Awake, Alert and AO x 3
Data Reviewed
-
CT Scan: Image Personally Visualized and interpreted, Report Reviewed by me, Discussed with Physician and Discussed with Patient
Labs: Labs Reviewed by me, Discussed with Physician and Discussed with Patient
Assessment / Plan
-
69 yo female who with biliary colic symptoms over the past few years presenting with recent worsening and persistent discomfort with n/v. CT imaging reviewed with mild gallbladder distention and wall thickening noted. Choledocholithiasis noted on CT
imaging as well with mild biliary tree dilation. LFT's elevated on presentation with bilirubin of 4.1 now 2.0. direct bilirubin 1.1, transaminitis noted. Mild leukopenia. Hypoglycemic on AM labs. Afebrile. Stable vital signs. +Cristina's sign on
exam, has been on ABX since admission. Given exam, possible acute cholecystitis present in addition to choledocholithiasis.
Plan:
Will need laparoscopic cholecystectomy, given +Cristina's sign will attempt to fit her into the OR schedule today with IOC
Continue IV zosyn empirically
Gastroenterology following, tentative ERCP today.
NPO for procedure
Hypoglycemia present: Start D5 1/4, prn glucose IV and follow blood sugars
Analgesics/antiemetics
Medical management as per primary team
[2025-05-05] MEDS: D5/0.45%NACL 1000 IV ×2 (10:28→17:23)
[2025-05-05 10:32] LABS: Glucose - Point of Care 59 mg/dl (70-99)
--- NOTE | 2025-05-05 10:57 | W.SUR.PREOP ---
Pre-Operative Surgical Note
-
I have examined this patient prior to the performance of the scheduled procedure.
The patient's condition is unchanged from the time of the current History and
Physical and the patient is able to undergo the scheduled procedure.
[2025-05-05 11:35] LABS: Glucose - Point of Care 87 mg/dl (70-99)
--- NOTE | 2025-05-05 13:31 | CM ---
Addendum entered by Suzanne Fuentes RN 05/05/25 13:34:
CM consult for substance abuse received. [employer] brochure provided to the patient.
Original Note:
Reviewed the chart notes and spoke with the patient at the bedside. Patient admitted for laparoscopic cholecystectomy with cholangiogram. The patient resides alone in a one story home with three steps to enter. The patient reports no DME/VN/SNF
in the past. Patient confirmed [facility] choice [facility]. CM continues to be available to patient/family and is monitoring medical plan for needs at discharge.
Plan: Discharge plans will depend on the patient's progress.
--- NOTE | 2025-05-05 16:01 | W.IMMPOSTOP ---
Surgical Immed Post Op Note
-
Primary Surgeon: Henri Biswas MD
Assisting Surgeon: None
Pre-op Diagnosis: Acute cholecystitis, choledocholithiasis
Post-op Diagnosis: Chronic cholecystitis, choledocholithiasis, hepatomegaly
Procedure Performed: Laparoscopic cholecystectomy with cholangiogram
Anesthesia Type: General
Specimen / Cultures: Gallbladder and contents
Estimated Blood Loss: 11 cc
Complications: None
Operative Findings: An infraumbilical cutdown was performed due to the size of the patient's liver. Mild chronic inflammation of the gallbladder consistent with chronic cholecystitis. After achieving the critical view of safety, a cholangiogram
was performed which demonstrated a dilated biliary duct to 1cm with nonobstructing biliary stones, the greatest measuring 1 cm. The duct was ligated with a clip followed by a 0 PDS Endoloop. There was minimal spillage of bile from her ductotomy,
no stones.
POST OP PLAN:
Imaging: None
Labs: Routine AM
Diet: Okay for clears, n.p.o. at midnight
Analgesia: Tylenol 650mg q6 Loree, Dilaudid 0.5mg q2h PRN
Neuro/vascular checks: Per unit protocol
AC/AP: Hold Therapeutic AC, Ok for DVT PPx
Activity: Ad Tamica
Wound/Incisions/Drains: Routine
Abx: Continue antibiotics
Dispo: RNF, anticipate ERCP tomorrow.
[2025-05-05] MEDS: DILAUDID 0.25 MG IV ×3 (16:28→16:51)
--- NOTE | 2025-05-05 16:34 | OR.RPT ---
Addendum entered and electronically signed by Henri Biswas MD 05/06/25 07:09:
Under operative details: A large piece of Surgicel was placed in the gallbladder fossa to help with hemostasis due to the inflammation. In addition, on gross inspection the liver looked large and somewhat fibrotic but no obvious cirrhosis all
consistent with the patient's reported history of daily EtOH drinking.
Original Note:
Operative Report
Operative Report
Patient Name: Suzanne Graham
: 1955
Date of Operation: 05/05/2025
Preoperative Diagnosis: Acute cholecystitis, choledocholithiasis
Postoperative Diagnosis: Chronic cholecystitis, choledocholithiasis
Procedure(s):
Laparoscopic Cholecystectomy with Cholangiogram
Surgeon(s):
Dr. Biswas
Auto Carrier Driver(s):
None
Anesthesia: General
Estimated Blood Loss: 11 cc
Urine Output: None
Drains/Lines/Implants: None
Specimens:
1. Gallbladder and contents
HPI/Surgical Indications:
This is a 69-year-old female who presents with 1 week of worsening abdominal pain, in the setting of chronic symptoms for years. Exam, labs and imaging are consistent with acute cholecystitis. Risks/Benefits/Alternatives were discussed at length,
and the patient agreed to proceed with surgery.
Operative Findings: An infraumbilical cutdown was performed due to the size of the patient's liver. Mild chronic inflammation of the gallbladder consistent with chronic cholecystitis. After achieving the critical view of safety, a cholangiogram
was performed which demonstrated a dilated biliary duct to 1cm with nonobstructing biliary stones, the greatest measuring 1 cm. The duct was ligated with a clip followed by a 0 PDS Endoloop. There was minimal spillage of bile from her ductotomy,
no stones.
Procedure Description:
The patient was brought to the Operating Room and placed in the supine position with one arm tucked. Following uneventful induction of general endotracheal anesthesia, an orogastric tube was placed. The abdomen was prepped and draped in the usual
sterile fashion. A timeout was performed confirming the procedure, consent, and that IV antibiotics were infused and sequential compression devices were confirmed to be on. The liver could be palpated well below the costal margin bilaterally. The
abdomen was entered using an infraumbilical open Louise technique with a 12 mm balloon-tipped trocar. Pneumoperitoneum to 12 mmHg pressure was obtained without difficulty and we confirmed that no injury had occurred during our entry. The patient
was positioned in reverse Trendelenberg and rotated with the right side up slightly. Three (3) 5mm trocars were then placed along the right subcostal margin. The gallbladder appeared somewhat chronically inflamed with adhesions over the anterior
surface stemming from the fundus all the way down to the infundibulum. These were carefully lysed with electrocautery and blunt dissection. A locking grasping forceps was placed on the fundus of the gallbladder where it was then retracted cephalad
and to the right. Using appropriate grasping instruments, the peritoneum overlying the triangle of Calot was incised and extended superiorly on both the anterior and posterior gallbladder laguerre. The infundibulum was dissected off the cystic plate.
The cystic triangle was dissected until a critical view of safety was achieved. The cystic artery was medialized, dissected and controlled with 2 proximal clips and 1 distal. The cystic duct/gallbladder junction in turn was identified, dissected
circumferentially and a clip was placed. A ductotomy was made and a cholangiocatheter on an Thacker clamp was inserted into the cystic duct. A C-arm was draped and brought into the field. An intra-operative cholangiogram was performed and was noted to
have:
Nonobstructing large filling defects in the biliary tree, the largest measuring roughly 10 mm
Significant biliary dilation to over 10 mm
Brisk flow of contrast into the duodenum
Otherwise, normal biliary anatomy
The catheter was then removed and the cystic duct was controlled with a clip followed by 0 PDS Endoloop. After ensuring both the artery and duct were divided, the gallbladder was freed from the liver using electrocautery. There was some spillage
of bile from our ductotomy, but no spillage of stones. 1 small gallstone was milked out of the duct before the cholangiogram which was removed. The gallbladder bed was inspected and excellent hemostasis was obtained. The gallbladder was extracted
through the 12 mm trocar site using an endocatch bag. The abdomen was again irrigated and excellent hemostasis was assured. All remaining trocars were then removed and the pneumoperitoneum was evacuated. The 12 mm trocar site was closed using 0
PDS suture. All trocar sites were closed at the skin level using 4-0 Monocryl followed by Dermabond. Overall, the patient tolerated the procedure well and was taken to the Recovery Room postoperatively in stable condition.
I was the attending physician and performed the procedure with no assistance. I was present for all portions of the case.
Henri Biswas MD
[2025-05-05] MEDS: LOVENOX 40 MG SC (17:19)
[2025-05-05] MEDS: MORPHINE SULFATE 4 MG IV (20:26)
[2025-05-05] MEDS: ZOFRAN 4 MG IV (21:05)
[2025-05-06] VITALS (9 sets, daily range): BP systolic 134–161; BP diastolic 65–84
[2025-05-06] MEDS: MORPHINE SULFATE 4 MG IV ×3 (01:58→20:16)
[2025-05-06] MEDS: D5/0.45%NACL 1000 IV ×2 (04:57→18:15)
[2025-05-06] MEDS: MORPHINE SULFATE 2 MG IV (04:57)
[2025-05-06] MEDS: ZOSYN 50 IV ×4 (05:02→23:15)
[2025-05-06 08:07] LABS: Hematocrit 43.1 % (37.0-47.0); Hemoglobin 14.9 g/dL (12.0-16.0); Mean Corp Hgb Conc. 34.6 g/dL (33.0-37.0); Mean Corpuscular Volume 95.4 fL (81.0-99.0); Platelet Count 156 10^3/uL (130-400); Red Cell Dist. Width 12.8 % (11.5-14.5)
[2025-05-06 08:29] LABS: ALT (SGPT) 67 U/L (0-35); AST (SGOT) 46 U/L (14-36); Albumin 3.6 g/dl (3.5-5.0); Alkaline Phosphatase 205 U/L (38-126); Blood Urea Nitrogen 5 mg/dl (7-17); Calcium 9.2 mg/dl (8.4-10.2); Carbon Dioxide 28 mmol/L (22-30); Chloride 102 mmol/L (98-107); Estimated Creatinine Clearance 72 ml/min; Glucose 113 mg/dl (70-99); Magnesium 1.8 mg/dl (1.6-2.3); Potassium 4.0 mmol/L (3.5-5.1); Sodium 135 mmol/L (135-145); Total Protein 6.1 g/dl (6.3-8.2); eGFR > 60.00
--- NOTE | 2025-05-06 08:53 | W.PN.GS2 ---
Today's Communication / Plan
-
ERCP today
Assessment / Plan
-
This is a 69-year-old female postoperative day 1 from a laparoscopic cholecystectomy for chronic cholecystitis and choledocholithiasis. Still with residual CBD stones. Doing well, expected postoperative course.
Appreciate GI. plan for ERCP today
N.p.o., can resume diet per GI post procedure.
Blood work reviewed and stable. Bilirubin down to 1.3.
Does not need antibiotics from a general surgery perspective.
Discharge instructions updated, general surgical follow-up peripherally.
Please call with any questions or concerns.
Time Spent
Total Time Spent with Patient (in minutes): 20
Subjective Data
-
Date of Service: May 06, 2025
Interval Events:
No acute events overnight. Slept well. Pain Controlled. Denies Nausea/Vomiting, -bowel function. Tolerating diet.
Objective Data
-
Intake and Output
05/05/25 05/06/25 05/07/25
06:59 06:59 06:59
Intake Total 1360 / 1360 3100 / 3100
Balance 1360 / 1360 3100 / 3100
Intake:
Oral fluids 1260 / 1260 600 / 600
IV fluids (Total) 2300 / 2300
Normosal 300 / 300
IV piggybacks 100 / 100 200 / 200
Other:
Number of approximated MODERATE 2 3
amounts of urine
Number of approximated LARGE 1
amounts of urine
Vital Signs
Temp Pulse Resp BP Pulse Ox
98.4 F 62 18 142/73 93
05/06/25 07:51 05/06/25 07:51 05/06/25 07:51 05/06/25 07:51 05/06/25 07:51
Lab Results
05/06/25 07:11
05/06/25 07:11
Calcium 9.2 mg/dl (8.4-10.2) 05/06/25 07:11
Phosphorus 3.3 mg/dl (2.5-4.5) 05/06/25 07:11
Magnesium 1.8 mg/dl (1.6-2.3) 05/06/25 07:11
Total Bilirubin 1.3 mg/dl (0.2-1.3) 05/06/25 07:11
Direct Bilirubin 1.1 mg/dl (0.0-0.4) H 05/05/25 07:43
AST 46 U/L (14-36) H 05/06/25 07:11
ALT 67 U/L (0-35) H 05/06/25 07:11
Alkaline Phosphatase 205 U/L (38-126) H 05/06/25 07:11
Total Protein 6.1 g/dl (6.3-8.2) L 05/06/25 07:11
Albumin 3.6 g/dl (3.5-5.0) 05/06/25 07:11
Physical Exam
-
GENERAL/NEURO: Awake, Alert, no distress
CHEST: Unlabored breathing on RA
ABDOMEN: Soft, Non-Tender, Non-Distended, incisions clean dry and intact.
Patient has a rodrigez catheter: No
Patient has a central line: No
[2025-05-06] MEDS: CLARITIN PO (11:58)
[2025-05-06] MEDS: ZOLOFT PO (12:00)
[2025-05-06] MEDS: VITAMIN D3 (cholecalciferol) PO (12:00)
[2025-05-06] MEDS: FOLVITE PO (12:00)
[2025-05-06] MEDS: THERAGRAN PO (12:00)
[2025-05-06] MEDS: NICODERM TRANSDERMAL 14 MG TRANSDERM (12:08)
[2025-05-06] MEDS: THIAMINE INJECTION 200 MG IV ×2 (12:08→20:13)
[2025-05-06] MEDS: ZOLOFT 50 MG PO (12:27)
--- NOTE | 2025-05-06 14:54 | W.PN.HOSP.TC ---
Today's Communication/Plan
-
see bold
Assessment / Plan
Assessment / Plan
HPI: 69yo F with PMHX of GERD, anxiety, severe claustrophobia, chronic epigastric pain came with worsening abd pain with diarrhea, now pain moved to RUQ and radiating to the back, found choledocholithiasis on CT with concern for cholangitis.
Accidental findings of R lung nodule.
A/P:
#Chronic cholecystitis
#Choledocholithiasis
#History of gastritis
Patient cannot tolerate MRI even with sedation
Appreciate general surgery input, status post laparoscopic cholecystectomy on 05/05
Appreciate GI input, status post ERCP with removal of stone and sphincterotomy/sphincteroplasty 05/06
Continue IV Zosyn, PPI, CLD today
#Leukopenia
Monitor
#Diarrhea
C.diff and norovirus neg
Stool Cx NTD
Supportive care
#1.1 x 0.7 cm nodular opacity in the right middle lobe
Unknown to patient
Seen by pulmonology, who recommends additional workup including CT chest, pulmonary function testing and possibly bronchoscopy as outpatient
#Insomnia
Start melatonin/benadryl
#ASCVD
LDL 92
#DJD
#Hx of b/l JENNIFER
#Anxiety d/o
Continue SSRI
#Nicotine dependency
Advised smoking cessation
Nitroderm
DVT prophylaxis�subcu Lovenox
Full code
Total time spent to see the patient on the floor, examine the patient, review data and lab results, discuss treatment plan with patient, nursing staff around 40 minutes.
Physical Exam
General: No acute distress
HEENT: Normocephalic, Atraumatic, EOMI, MMM
Respiratory: Clear to Auscultation bilaterally
Cardiac: Normal S1/S2, Regular Rate and Rhythm
GI: Soft, appropriate jerson-incisional tenderness, incisions with ecchymosis, clean/dry/intact
Extremities: No Clubbing, Cyanosis, or Edema
Neuro: Nonfocal/Grossly Intact
Psych: Calm, Cooperative
Derm: Scattered ecchymosis on arms
Anticipated Discharge: Within 24 hours
Subjective/Interval History
-
Date of Service: May 06, 2025
Patient reports abdominal pain with movement. She denies nausea, denies vomiting, denies gas, denies stools. No chest pain, no shortness of breath. No fever.
Objective Data
-
Labs:
Laboratory Results
05/06/25
07:11
WBC 7.9
Hgb 14.9
Hct 43.1
Plt Count 156
Sodium 135
Potassium 4.0
Chloride 102
Carbon Dioxide 28
BUN 5 L
Creatinine 0.5 L
Glucose 113 H
Calcium 9.2
Total Bilirubin 1.3
AST 46 H
ALT 67 H
Alkaline Phosphatase 205 H
Vital Signs:
Vital Signs
Temp Pulse Resp BP Pulse Ox
98.4 F 62 18 142/73 93
05/06/25 07:51 05/06/25 07:51 05/06/25 07:51 05/06/25 07:51 05/06/25 07:51
I&O
05/05/25 05/06/25 05/07/25
06:59 06:59 06:59
Intake Total 1360 / 1360 3100 / 3100
Balance 1360 / 1360 3100 / 3100
--- NOTE | 2025-05-06 15:38 | CM ---
Reviewed the chart notes and spoke with the patient at the bedside. IMM reviewed. Patient's diet at present is clear liquid. CM continues to be available to patient/family and is monitoring medical plan for needs at discharge.
Plan: Discharge to home when medically stable. No needs anticipated at this time.
[2025-05-06] MEDS: MELATONIN 5 MG PO (23:14)
[2025-05-06] MEDS: BENADRYL 25 MG PO (23:15)
[2025-05-07] MEDS: D5/0.45%NACL 1000 IV (05:19)
[2025-05-07] MEDS: ZOSYN 50 IV ×2 (05:19→11:17)
[2025-05-07] MEDS: MORPHINE SULFATE 4 MG IV ×2 (05:24→12:26)
[2025-05-07 07:16] LABS: Hematocrit 41.1 % (37.0-47.0); Hemoglobin 13.7 g/dL (12.0-16.0); Mean Corp Hgb Conc. 33.3 g/dL (33.0-37.0); Mean Corpuscular Volume 97.9 fL (81.0-99.0); Platelet Count 158 10^3/uL (130-400); Red Cell Dist. Width 13.1 % (11.5-14.5)
[2025-05-07 07:31] LABS: ALT (SGPT) 81 U/L (0-35); AST (SGOT) 149 U/L (14-36); Albumin 3.2 g/dl (3.5-5.0); Alkaline Phosphatase 238 U/L (38-126); Blood Urea Nitrogen 3 mg/dl (7-17); Calcium 9.0 mg/dl (8.4-10.2); Carbon Dioxide 27 mmol/L (22-30); Chloride 108 mmol/L (98-107); Estimated Creatinine Clearance 72 ml/min; Glucose 93 mg/dl (70-99); Potassium 3.4 mmol/L (3.5-5.1); Sodium 139 mmol/L (135-145); Total Protein 5.6 g/dl (6.3-8.2); eGFR > 60.00
[2025-05-07 07:45] VITALS: BP 131/65
[2025-05-07 08:17] LABS: Lipase > 4000 U/L (23-300)
--- NOTE | 2025-05-07 08:29 | W.PN.HOSP.TC ---
Today's Communication/Plan
-
see bold
Assessment / Plan
Assessment / Plan
HPI: 69yo F with PMHX of GERD, anxiety, severe claustrophobia, chronic epigastric pain came with worsening abd pain with diarrhea, now pain moved to RUQ and radiating to the back, found choledocholithiasis on CT with concern for cholangitis.
Accidental findings of R lung nodule.
A/P:
#Chronic cholecystitis
#Choledocholithiasis
#History of gastritis
Patient cannot tolerate MRI even with sedation
Appreciate general surgery input, status post laparoscopic cholecystectomy on 05/05
Appreciate GI input, status post ERCP with removal of stone and sphincterotomy/sphincteroplasty 05/06
Continue PPI, stop IV Zosyn
#Post ERCP pancreatitis
Increase IV fluids, pain meds prn
#Hypokalemia
Replete, recheck a.m. labs
#Leukopenia
Monitor
#Diarrhea
C.diff and norovirus neg
Stool Cx NTD
Supportive care
#1.1 x 0.7 cm nodular opacity in the right middle lobe
Unknown to patient
Seen by pulmonology, who recommends additional workup including CT chest, pulmonary function testing and possibly bronchoscopy as outpatient
#Insomnia
Started melatonin/benadryl
#ASCVD
LDL 92
#DJD
#Hx of b/l JENNIFER
#Anxiety d/o
Continue SSRI
#Nicotine dependency
Advised smoking cessation
Nitroderm
DVT prophylaxis�subcu Lovenox
Full code
Total time spent to see the patient on the floor, examine the patient, review data and lab results, discuss treatment plan with patient, nursing staff around 50 minutes.
Physical Exam
General: No acute distress
HEENT: Normocephalic, Atraumatic, EOMI, MMM
Respiratory: Clear to Auscultation bilaterally
Cardiac: Normal S1/S2, Regular Rate and Rhythm
GI: Soft, appropriate jerson-incisional tenderness, incisions with ecchymosis, clean/dry/intact
Extremities: No Clubbing, Cyanosis, or Edema
Neuro: Nonfocal/Grossly Intact
Psych: Calm, Cooperative
Derm: Scattered ecchymosis on arms
Anticipated Discharge: 24 - 48 hours
Subjective/Interval History
-
Date of Service: May 07, 2025
Patient complains of worsening epigastric and right upper quadrant abdominal pain after her ERCP today. She has nausea, no vomiting. She reports having a loose stool. No fever.
Objective Data
-
Labs:
Laboratory Results
05/07/25
06:38
WBC 5.4
Hgb 13.7
Hct 41.1
Plt Count 158
Sodium 139
Potassium 3.4 L
Chloride 108 H
Carbon Dioxide 27
BUN 3 L
Creatinine 0.5 L
Glucose 93
Calcium 9.0
Total Bilirubin 2.2 H D
AST 149 H
ALT 81 H
Alkaline Phosphatase 238 H
Vital Signs:
Vital Signs
Temp Pulse Resp BP Pulse Ox
97.7 F 56 16 131/65 97
05/07/25 07:45 05/07/25 07:45 05/07/25 07:45 05/07/25 07:45 05/07/25 07:45
I&O
05/06/25 05/07/25 05/08/25
06:59 06:59 06:59
Intake Total 3100 / 3100 3920 / 3920
Balance 3100 / 3100 3920 / 3920
[2025-05-07] MEDS: ZOLOFT 50 MG PO (08:32)
[2025-05-07] MEDS: THERAGRAN 1 TABLET PO (08:32)
[2025-05-07] MEDS: VITAMIN D3 (cholecalciferol) 25 MCG PO (08:32)
[2025-05-07] MEDS: FOLVITE 1 MG PO (08:32)
[2025-05-07] MEDS: NICODERM TRANSDERMAL 14 MG TRANSDERM (08:32)
[2025-05-07] MEDS: VITAMIN B1 100 MG PO ×2 (08:32→19:24)
[2025-05-07] MEDS: CLARITIN 10 MG PO (08:32)
[2025-05-07] MEDS: D5/0.9% with KCL 20 MEQ 1000 IV (08:43)
--- NOTE | 2025-05-07 09:39 | W.PN.GS2 ---
Today's Communication / Plan
-
NPO with sips and chips
Assessment / Plan
-
This is a 69-year-old female postoperative day 2 from a laparoscopic cholecystectomy for chronic cholecystitis and choledocholithiasis. PPD1 s/p ERCP, now with pancreatitis
AFVSS
LFTs trended up slightly, likely due to swelling at the ampulla
Lipase >4K
NPO with sips and chips
PRN pain meds
Does not need antibiotics from a general surgery perspective.
Discharge instructions updated, general surgical follow-up peripherally.
Subjective Data
-
Date of Service: May 07, 2025
AFVSS, c/o worsening abd pain, denies n/v
Objective Data
-
Intake and Output
05/06/25 05/07/25 05/08/25
06:59 06:59 06:59
Intake Total 3100 / 3100 3920 / 3920
Balance 3100 / 3100 3920 / 3920
Intake:
Oral fluids 600 / 600 1920 / 1920
IV fluids (Total) 2300 / 2300 1800 / 1800
Normosal 300 / 300
IV piggybacks 200 / 200 200 / 200
Other:
Number of approximated MODERATE 3 4
amounts of urine
Number of approximated LARGE 3
amounts of urine
Vital Signs
Temp Pulse Resp BP Pulse Ox
97.7 F 56 16 131/65 97
05/07/25 07:45 05/07/25 07:45 05/07/25 07:45 05/07/25 07:45 05/07/25 07:45
Lab Results
05/07/25 06:38
05/07/25 06:38
Calcium 9.0 mg/dl (8.4-10.2) 05/07/25 06:38
Phosphorus 3.3 mg/dl (2.5-4.5) 05/06/25 07:11
Magnesium 1.8 mg/dl (1.6-2.3) 05/06/25 07:11
Total Bilirubin 2.2 mg/dl (0.2-1.3) H D 05/07/25 06:38
Direct Bilirubin 1.1 mg/dl (0.0-0.4) H 05/05/25 07:43
AST 149 U/L (14-36) H 05/07/25 06:38
ALT 81 U/L (0-35) H 05/07/25 06:38
Alkaline Phosphatase 238 U/L (38-126) H 05/07/25 06:38
Total Protein 5.6 g/dl (6.3-8.2) L 05/07/25 06:38
Albumin 3.2 g/dl (3.5-5.0) L 05/07/25 06:38
Physical Exam
-
Gen: NAD
Abd: soft, incisions cdi, exquisite ttp to epigastrium
Patient has a rodrigez catheter: No
Patient has a central line: No
[2025-05-07] MEDS: MORPHINE SULFATE 2 MG IV (10:04)
--- NOTE | 2025-05-07 10:54 | CM ---
Reviewed the chart notes. Per notes, patient with pancreatitis. CM continues to be available to patient/family and is monitoring medical plan for needs at discharge.
Plan: Discharge to home with medically stable. No needs anticipated at this time.
--- NOTE | 2025-05-07 11:37 | W.PN.GI.CBS2 ---
Addendum entered and electronically signed by Espinoza Law MD 05/07/25 15:43:
I saw and examined the patient.
The CHASER APPRENTICE or PA's note was reviewed and I agree with the note.
Comment:
Pt with abdominal pain which is constant but stable all day. Pt sleeping when I came into the room
abd: tender epigastric
Increased lipase
impression
post ercp pancreatitis
plan:
IVF
pain control
NPO
cont antibx
Original Note:
Today's Communication / Plan
-
s/p ERCP as noted with stone extraction
some increased LFT's and lipase -this am -- inflammation vs pancreatitis
reviewed with Dr. Aden for IVF will increased to 150ml/hr now then per as K still low this am -- review with nursing staff
cont pain control
clear diet would not advance
cont abx
cont PPI
stool studies neg with diarrhea per Dr. Lakhani note will add fecal calprotectin, fecal fat, celiac, thyroid. This is more of a chronic issue for her, needs outpatient GI follow up and cscope.
encouraged OOB, compression stocking
Assessment / Plan
-
69-year-old female past medical history of reflux on PPI and daily alcohol use and smoker presenting with abdominal pain and elevated bilirubin and transaminitis and CT with choledocholithiasis. Also with chronic diarrhea and dysphagia. She
proceeded for lap lakesha with cholangiogram 10.[address] Biswas and recommended follow up ERCP post procedure. She proceeded to ERCP with stone extraction with some post-op pain and lipase >4000.
05/06- [place] ERCP'
-The esophagus was successfully intubated under direct vision
without detailed examination of the pharynx, larynx, and associated
structures.
- The major papilla was on the rim of a diverticulum.
- A filling defect consistent with a stone was seen on the
cholangiogram.
- The common bile duct was mildly dilated.
- Choledocholithiasis was found. Complete removal was accomplished
by biliary sphincterotomy and balloon extraction.
- A biliary sphincterotomy was performed.
- Major papilla was successfully dilated.
- The biliary tree was swept.
-choledocholithiasis s/p ERCP 05/06
-post procedure pain with lipase >4000- inflammation vs pancreatitis
-chornic cholecystitis s/p lap lakesha 05/05
-hx GERD
-dysphagia
-diarrhea
-hx ETOH/tobacco use
-pulm nodule
Plan:
s/p ERCP as noted with stone extraction
some increased LFT's and lipase -this am -- inflammation vs pancreatitis
reviewed with Dr. Aden for IVF will increased to 150ml/hr now then per as K still low this am -- review with nursing staff
cont pain control
clear diet would not advance
cont abx
cont PPI
stool studies neg with diarrhea per Dr. Lakhani note will add fecal calprotectin, fecal fat, celiac, thyroid. This is more of a chronic issue for her, needs outpatient GI follow up and cscope.
encouraged OOB, compression stocking
Subjective
Subjective
Date of Service: May 07, 2025
05/04 stool on clear diet-- noted some increased pain yesterday and this am
Objective
Data Reviewed
Laboratory Data:
Laboratory Results
05/07/25 06:38
05/07/25 06:38
Laboratory Results
PT 12.7 Sec (11.4-14.6) 05/03/25 13:40
INR 0.92 05/03/25 13:40
Phosphorus 3.3 mg/dl (2.5-4.5) 05/06/25 07:11
Magnesium 1.8 mg/dl (1.6-2.3) 05/06/25 07:11
Total Bilirubin 2.2 mg/dl (0.2-1.3) H D 05/07/25 06:38
AST 149 U/L (14-36) H 05/07/25 06:38
ALT 81 U/L (0-35) H 05/07/25 06:38
Alkaline Phosphatase 238 U/L (38-126) H 05/07/25 06:38
Lipase > 4000 U/L (23-300) H* 05/07/25 06:38
Vital Signs and I&O:
Vital Signs
Temp Pulse Resp BP Pulse Ox
97.7 F 56 16 131/65 97
05/07/25 07:45 05/07/25 07:45 05/07/25 07:45 05/07/25 07:45 05/07/25 07:45
I&O
05/06/25 05/07/25 05/08/25
06:59 06:59 06:59
Intake Total 3100 / 3100 3920 / 3920
Balance 3100 / 3100 3920 / 3920
Physical Exam
Physical Exam
HEENT: Anicteric and Moist mucous membranes
Cardiology: Normal Sinus Rhythm
Pulmonary: Clear
GI: Soft, Distended (mild ) and Tender (diffuse worse left sided but some also right sided )
Extremities: No Edema
Neuro: Non Focal
[2025-05-07 13:48] LABS: TSH 2.17 uIU/ml (0.47-4.68)
[2025-05-07 16:08] VITALS: BP 141/70
[2025-05-07] MEDS: D5/0.9% SODIUM CHLORIDE 1000 IV (16:45)
[2025-05-07] MEDS: DILAUDID 0.5 MG IV ×2 (16:47→21:04)
[2025-05-07] MEDS: MELATONIN 5 MG PO (23:13)
[2025-05-07] MEDS: BENADRYL 25 MG PO (23:13)
[2025-05-07 23:30] VITALS: BP 158/76
[2025-05-08] MEDS: D5/0.9% SODIUM CHLORIDE 1000 IV ×4 (00:01→20:15)
[2025-05-08] MEDS: DILAUDID 0.5 MG IV ×6 (00:04→21:48)
[2025-05-08 07:56] LABS: Hematocrit 44.1 % (37.0-47.0); Hemoglobin 14.1 g/dL (12.0-16.0); Mean Corp Hgb Conc. 32.0 g/dL (33.0-37.0); Mean Corpuscular Volume 102.6 fL (81.0-99.0); Platelet Count 142 10^3/uL (130-400); Red Cell Dist. Width 13.2 % (11.5-14.5)
[2025-05-08] MEDS: CLARITIN 10 MG PO (08:06)
[2025-05-08] MEDS: VITAMIN B1 100 MG PO ×2 (08:06→20:17)
[2025-05-08] MEDS: THERAGRAN 1 TABLET PO (08:06)
[2025-05-08] MEDS: ZOLOFT 50 MG PO (08:06)
[2025-05-08] MEDS: VITAMIN D3 (cholecalciferol) 25 MCG PO (08:06)
[2025-05-08] MEDS: NICODERM TRANSDERMAL 14 MG TRANSDERM (08:07)
[2025-05-08] MEDS: FOLVITE 1 MG PO (08:07)
[2025-05-08 08:15] VITALS: BP 161/81
[2025-05-08 08:58] LABS: ALT (SGPT) 83 U/L (0-35); AST (SGOT) 99 U/L (14-36); Albumin 3.0 g/dl (3.5-5.0); Alkaline Phosphatase 184 U/L (38-126); Blood Urea Nitrogen < 2 mg/dl (7-17); Calcium 8.7 mg/dl (8.4-10.2); Carbon Dioxide 28 mmol/L (22-30); Chloride 108 mmol/L (98-107); Estimated Creatinine Clearance 72 ml/min; Glucose 89 mg/dl (70-99); Potassium 4.3 mmol/L (3.5-5.1); Sodium 138 mmol/L (135-145); Total Protein 5.4 g/dl (6.3-8.2); eGFR > 60.00
--- NOTE | 2025-05-08 09:08 | W.PN.HOSP.TC ---
Today's Communication/Plan
-
see bold
Assessment / Plan
Assessment / Plan
HPI: 69yo F with PMHX of GERD, anxiety, severe claustrophobia, chronic epigastric pain came with worsening abd pain with diarrhea, now pain moved to RUQ and radiating to the back, found choledocholithiasis on CT with concern for cholangitis.
Accidental findings of R lung nodule.
A/P:
#Chronic cholecystitis
#Choledocholithiasis
#History of gastritis
Patient cannot tolerate MRI even with sedation
Appreciate general surgery input, status post laparoscopic cholecystectomy on 05/05
Appreciate GI input, status post ERCP with removal of stone and sphincterotomy/sphincteroplasty 05/06
Continue PPI, s/p IV Zosyn
#Post ERCP pancreatitis
Increased IV fluids, clears, pain meds prn
#Hypokalemia
Repleted and resolved
#Leukopenia
Monitor
#Diarrhea
C.diff and norovirus neg
Stool Cx NTD
Supportive care
#1.1 x 0.7 cm nodular opacity in the right middle lobe
Unknown to patient
Seen by pulmonology, who recommends additional workup including CT chest, pulmonary function testing and possibly bronchoscopy as outpatient
#Insomnia
Started melatonin/benadryl
#ASCVD
LDL 92
#DJD
#Hx of b/l JENNIFER
#Anxiety d/o
Continue SSRI
#Nicotine dependency
Advised smoking cessation
Nitroderm
DVT prophylaxis�subcu Lovenox
Full code
Total time spent to see the patient on the floor, examine the patient, review data and lab results, discuss treatment plan with patient, nursing staff around 40 minutes.
Physical Exam
General: No acute distress
HEENT: Normocephalic, Atraumatic, EOMI, MMM
Respiratory: Clear to Auscultation bilaterally
Cardiac: Normal S1/S2, Regular Rate and Rhythm
GI: Soft, appropriate jerson-incisional tenderness, incisions with ecchymosis, clean/dry/intact
Extremities: No Clubbing, Cyanosis, or Edema
Neuro: Nonfocal/Grossly Intact
Psych: Calm, Cooperative
Derm: Scattered ecchymosis on arms
Anticipated Discharge: Within 24 hours
Subjective/Interval History
-
Date of Service: May 08, 2025
Patient reports that abdominal pain has improved. She had a bowel movement. No nausea. No chest pain, no shortness of breath. No fever, no vomiting.
Objective Data
-
Labs:
Laboratory Results
05/08/25
07:20
WBC 6.1
Hgb 14.1
Hct 44.1
Plt Count 142
Sodium 138
Potassium 4.3 D
Chloride 108 H
Carbon Dioxide 28
BUN < 2 L
Creatinine 0.5 L
Glucose 89
Calcium 8.7
Total Bilirubin 1.0 D
AST 99 H
ALT 83 H
Alkaline Phosphatase 184 H
Vital Signs:
Vital Signs
Temp Pulse Resp BP Pulse Ox
98.1 F 68 16 161/81 95
05/08/25 08:15 05/08/25 08:15 05/08/25 08:15 05/08/25 08:15 05/08/25 08:15
I&O
05/07/25 05/08/25 05/09/25
06:59 06:59 06:59
Intake Total 3920 / 3920 4970 / 4970
Balance 3920 / 3920 4970 / 4970
--- NOTE | 2025-05-08 11:11 | W.PN.GI.CBS2 ---
Today's Communication / Plan
-
continue management, ongoing but improving pancreatitis
Assessment / Plan
-
69-year-old female past medical history of reflux on PPI and daily alcohol use and smoker presenting with abdominal pain and elevated bilirubin and transaminitis and CT with choledocholithiasis. Also with chronic diarrhea and dysphagia. She
proceeded for lap lakesha with cholangiogram . with Dr. Biswas and recommended follow up ERCP post procedure. She proceeded to ERCP with stone extraction with some post-op pain and lipase >4000.
05/06- Los ERCP'
-The esophagus was successfully intubated under direct vision
without detailed examination of the pharynx, larynx, and associated
structures.
- The major papilla was on the rim of a diverticulum.
- A filling defect consistent with a stone was seen on the
cholangiogram.
- The common bile duct was mildly dilated.
- Choledocholithiasis was found. Complete removal was accomplished
by biliary sphincterotomy and balloon extraction.
- A biliary sphincterotomy was performed.
- Major papilla was successfully dilated.
- The biliary tree was swept.
-choledocholithiasis s/p ERCP 05/06
-post procedure pain with lipase >4000- inflammation vs pancreatitis
-chornic cholecystitis s/p lap lakesha 05/05
-hx GERD
-dysphagia
-diarrhea
-hx ETOH/tobacco use
-pulm nodule
Plan:
s/p ERCP as noted with stone extraction
pain control
IVF
f/u lipase (just added)
clear liquids
Subjective
Subjective
Date of Service: May 08, 2025
Pt with less abdominal pain but still present. Playing on computer
Objective
Data Reviewed
Laboratory Data:
Laboratory Results
05/08/25 07:20
05/08/25 07:20
Laboratory Results
PT 12.7 Sec (11.4-14.6) 05/03/25 13:40
INR 0.92 05/03/25 13:40
Phosphorus 3.3 mg/dl (2.5-4.5) 05/06/25 07:11
Magnesium 1.8 mg/dl (1.6-2.3) 05/06/25 07:11
Total Bilirubin 1.0 mg/dl (0.2-1.3) D 05/08/25 07:20
AST 99 U/L (14-36) H 05/08/25 07:20
ALT 83 U/L (0-35) H 05/08/25 07:20
Alkaline Phosphatase 184 U/L (38-126) H 05/08/25 07:20
Lipase > 4000 U/L (23-300) H* 05/07/25 06:38
Vital Signs and I&O:
Vital Signs
Temp Pulse Resp BP Pulse Ox
98.1 F 68 16 161/81 95
05/08/25 08:15 05/08/25 08:15 05/08/25 08:15 05/08/25 08:15 05/08/25 10:53
I&O
05/07/25 05/08/25 05/09/25
06:59 06:59 06:59
Intake Total 3920 / 3920 4970 / 4970
Balance 3920 / 3920 4970 / 4970
Physical Exam
Physical Exam
GI: Soft and Tender
Neuro: Non Focal
[2025-05-08 11:53] LABS: Lipase 714 U/L (23-300)
--- NOTE | 2025-05-08 12:20 | CM ---
Reviewed the chart notes. Patient remains on clear liquid diet. CM continues to be available to patient/family and is monitoring medical plan for needs at discharge.
Plan: Discharge to home when medically stable.
[2025-05-08 15:38] VITALS: BP 150/68
[2025-05-08] MEDS: MELATONIN 5 MG PO (23:04)
[2025-05-08] MEDS: BENADRYL 25 MG PO (23:04)
[2025-05-08 23:16] VITALS: BP 164/77
[2025-05-09] MEDS: DILAUDID 0.5 MG IV ×2 (02:33→08:32)
[2025-05-09] MEDS: D5/0.9% SODIUM CHLORIDE 1000 IV ×4 (02:56→22:21)
[2025-05-09 07:05] VITALS: BP 167/77
[2025-05-09 08:02] LABS: Lipase 94 U/L (23-300)
[2025-05-09] MEDS: CLARITIN 10 MG PO (08:32)
[2025-05-09] MEDS: THERAGRAN 1 TABLET PO (08:32)
[2025-05-09] MEDS: NICODERM TRANSDERMAL 14 MG TRANSDERM (08:33)
[2025-05-09] MEDS: FOLVITE 1 MG PO (08:33)
[2025-05-09] MEDS: VITAMIN D3 (cholecalciferol) 25 MCG PO (08:33)
[2025-05-09] MEDS: ZOLOFT 50 MG PO (08:33)
[2025-05-09] MEDS: VITAMIN B1 100 MG PO ×2 (08:33→20:30)
--- NOTE | 2025-05-09 08:47 | W.PN.HOSP.TC ---
Today's Communication/Plan
-
see bold
Assessment / Plan
Assessment / Plan
HPI: 69yo F with PMHX of GERD, anxiety, severe claustrophobia, chronic epigastric pain came with worsening abd pain with diarrhea, now pain moved to RUQ and radiating to the back, found choledocholithiasis on CT with concern for cholangitis.
Accidental findings of R lung nodule.
A/P:
#Chronic cholecystitis
#Choledocholithiasis
#History of gastritis
Patient cannot tolerate MRI even with sedation
Appreciate general surgery input, status post laparoscopic cholecystectomy on 05/05
Appreciate GI input, status post ERCP with removal of stone and sphincterotomy/sphincteroplasty 05/06
Continue PPI, s/p IV Zosyn
#Post ERCP pancreatitis
Increased IV fluids, full liquids, pain meds prn
#Hypokalemia
Repleted and resolved
#Leukopenia
Monitor
#Diarrhea
C.diff and norovirus neg
Stool Cx NTD
Supportive care
#1.1 x 0.7 cm nodular opacity in the right middle lobe
Unknown to patient
Seen by pulmonology, who recommends additional workup including CT chest, pulmonary function testing and possibly bronchoscopy as outpatient
#Insomnia
Started melatonin/benadryl
#ASCVD
LDL 92
#DJD
#Hx of b/l JENNIFER
#Anxiety d/o
Continue SSRI
#Nicotine dependency
Advised smoking cessation
Nitroderm
DVT prophylaxis�subcu Lovenox
Full code
Total time spent to see the patient on the floor, examine the patient, review data and lab results, discuss treatment plan with patient, nursing staff around 38 minutes.
Physical Exam
General: No acute distress
HEENT: Normocephalic, Atraumatic, EOMI, MMM
Respiratory: Clear to Auscultation bilaterally
Cardiac: Normal S1/S2, Regular Rate and Rhythm
GI: Soft, appropriate jerson-incisional tenderness, incisions with ecchymosis, clean/dry/intact
Extremities: No Clubbing, Cyanosis, or Edema
Neuro: Nonfocal/Grossly Intact
Psych: Calm, Cooperative
Derm: Scattered ecchymosis on arms
Anticipated Discharge: Within 24 hours
Subjective/Interval History
-
Date of Service: May 09, 2025
Patient reports her abdominal pain is the same as yesterday. States that it is 2 at rest, 8 with movement. No nausea, no vomiting. No fever.
Objective Data
-
Vital Signs:
Vital Signs
Temp Pulse Resp BP Pulse Ox
99.0 F 65 18 167/77 97
05/09/25 07:05 05/09/25 07:05 05/09/25 07:05 05/09/25 07:05 05/09/25 07:05
I&O
05/08/25 05/09/25 05/10/25
06:59 06:59 06:59
Intake Total 4970 / 4970 4755 / 4755
Balance 4970 / 4970 4755 / 4755
--- NOTE | 2025-05-09 11:48 | W.PN.GI.CBS2 ---
Today's Communication / Plan
-
Full liquid diet
Assessment / Plan
-
69-year-old female past medical history of reflux on PPI and daily alcohol use and smoker presenting with abdominal pain and elevated bilirubin and transaminitis and CT with choledocholithiasis. Also with chronic diarrhea and dysphagia. She
proceeded for lap lakesha with cholangiogram . with Dr. Biswas and recommended follow up ERCP post procedure. She proceeded to ERCP with stone extraction with some post-op pain and lipase >4000.
05/06- Los ERCP'
-The esophagus was successfully intubated under direct vision
without detailed examination of the pharynx, larynx, and associated
structures.
- The major papilla was on the rim of a diverticulum.
- A filling defect consistent with a stone was seen on the
cholangiogram.
- The common bile duct was mildly dilated.
- Choledocholithiasis was found. Complete removal was accomplished
by biliary sphincterotomy and balloon extraction.
- A biliary sphincterotomy was performed.
- Major papilla was successfully dilated.
- The biliary tree was swept.
-choledocholithiasis s/p ERCP 05/06 with stone extraction
-post procedure pain with lipase >4000- inflammation vs pancreatitis
-chornic cholecystitis s/p lap lakesha 05/05
-hx GERD
-dysphagia
-diarrhea
-hx ETOH/tobacco use
-pulm nodule
Plan:
Repeat lipase was normal
pain control as per medical team
Okay to advance to full liquid diet
Total Time Spent with Patient (in minutes): 35
Subjective
Subjective
Date of Service: May 09, 2025
C/o abdominal pain- somewhat better . Tolerating clear liquid diet
Objective
Data Reviewed
Laboratory Data:
Laboratory Results
05/08/25 07:20
05/08/25 07:20
Laboratory Results
PT 12.7 Sec (11.4-14.6) 05/03/25 13:40
INR 0.92 05/03/25 13:40
Phosphorus 3.3 mg/dl (2.5-4.5) 05/06/25 07:11
Magnesium 1.8 mg/dl (1.6-2.3) 05/06/25 07:11
Total Bilirubin 1.0 mg/dl (0.2-1.3) D 05/08/25 07:20
AST 99 U/L (14-36) H 05/08/25 07:20
ALT 83 U/L (0-35) H 05/08/25 07:20
Alkaline Phosphatase 184 U/L (38-126) H 05/08/25 07:20
Lipase 94 U/L (23-300) 05/09/25 06:22
Vital Signs and I&O:
Vital Signs
Temp Pulse Resp BP Pulse Ox
99.0 F 65 18 167/77 97
05/09/25 07:05 05/09/25 07:05 05/09/25 07:05 05/09/25 07:05 05/09/25 07:05
I&O
05/08/25 05/09/25 05/10/25
06:59 06:59 06:59
Intake Total 4970 / 4970 4755 / 4755
Balance 4970 / 4970 4755 / 4755
Physical Exam
Physical Exam
GI: Soft, Non Distended and Tender (Complains of epigastric tendernes on superficial palpation-claims she is extremely sensitive with pain)
[2025-05-09 15:20] VITALS: BP 167/84
--- NOTE | 2025-05-09 16:04 | CM ---
Reviewed the chart notes and spoke with the patient at the bedside. IMM reviewed. CM continues to be available to patient/family and is monitoring medical plan for needs at discharge.
Plan: Discharge to home when medically stable. No needs anticipated at this time.
[2025-05-09] MEDS: MELATONIN 5 MG PO (22:34)
[2025-05-09] MEDS: BENADRYL 25 MG PO (22:35)
[2025-05-09 23:27] VITALS: BP 167/79
[2025-05-10] MEDS: ZOFRAN 4 MG IV ×3 (00:57→22:43)
--- NOTE | 2025-05-10 01:06 | PTCARENOTE ---
Patient vomited 2 tablespoons of clear emesis. She thinks its the broth she ate; it's been repeating on her. CRISTOFER Limon provided.
[2025-05-10] MEDS: DILAUDID 0.5 MG IV (01:21)
[2025-05-10] MEDS: D5/0.9% SODIUM CHLORIDE 1000 IV ×4 (04:19→23:25)
[2025-05-10 07:09] VITALS: BP 164/75
[2025-05-10] MEDS: VITAMIN D3 (cholecalciferol) 25 MCG PO (07:44)
[2025-05-10] MEDS: THERAGRAN 1 TABLET PO (07:45)
[2025-05-10] MEDS: VITAMIN B1 100 MG PO ×2 (07:45→19:58)
[2025-05-10] MEDS: FOLVITE 1 MG PO (07:45)
[2025-05-10] MEDS: ZOLOFT 50 MG PO (07:45)
[2025-05-10] MEDS: CLARITIN 10 MG PO (07:45)
[2025-05-10] MEDS: NICODERM TRANSDERMAL 14 MG TRANSDERM (07:45)
[2025-05-10] MEDS: ROXICODONE 5 MG PO (07:57)
--- NOTE | 2025-05-10 08:55 | W.PN.HOSP.TC ---
Today's Communication/Plan
-
see bold
Assessment / Plan
Assessment / Plan
HPI: 69yo F with PMHX of GERD, anxiety, severe claustrophobia, chronic epigastric pain came with worsening abd pain with diarrhea, now pain moved to RUQ and radiating to the back, found choledocholithiasis on CT with concern for cholangitis.
Accidental findings of R lung nodule.
A/P:
#Chronic cholecystitis
#Choledocholithiasis
#History of gastritis
Patient cannot tolerate MRI even with sedation
Appreciate general surgery input, status post laparoscopic cholecystectomy on 05/05
Appreciate GI input, status post ERCP with removal of stone and sphincterotomy/sphincteroplasty 05/06
Continue PPI, s/p IV Zosyn
#Post ERCP pancreatitis
Lipase now normal, GI advance to low-fat low residue diet
Continue pain meds prn
#Hypokalemia
Repleted and resolved
#Hypomagnesemia
Replete by IV, recheck a.m. labs
#Leukopenia
Monitor
#Diarrhea
C.diff and norovirus neg
Stool Cx NTD
Supportive care
#1.1 x 0.7 cm nodular opacity in the right middle lobe
Unknown to patient
Seen by pulmonology, who recommends additional workup including CT chest, pulmonary function testing and possibly bronchoscopy as outpatient
#Insomnia
Started melatonin/benadryl
#ASCVD
LDL 92
#DJD
#Hx of b/l JENNIFER
#Anxiety d/o
Continue SSRI
#Nicotine dependency
Advised smoking cessation
Nitroderm
DVT prophylaxis�subcu Lovenox
Full code
Total time spent to see the patient on the floor, examine the patient, review data and lab results, discuss treatment plan with patient, nursing staff around 40 minutes.
Physical Exam
General: No acute distress
HEENT: Normocephalic, Atraumatic, EOMI, MMM
Respiratory: Clear to Auscultation bilaterally
Cardiac: Normal S1/S2, Regular Rate and Rhythm
GI: Soft, appropriate jerson-incisional tenderness, incisions with ecchymosis, clean/dry/intact
Extremities: No Clubbing, Cyanosis, or Edema
Neuro: Nonfocal/Grossly Intact
Psych: Calm, Cooperative
Derm: Scattered ecchymosis on arms
Anticipated Discharge: Within 24 hours
Subjective/Interval History
-
Date of Service: May 10, 2025
Patient reports that her abdominal pain is worse today. She also reports vomiting last night. Denies chest pain, denies shortness of breath. No fever.
Objective Data
-
Labs:
Laboratory Results
05/10/25
08:24
Sodium Pending
Potassium Pending
Chloride Pending
Carbon Dioxide Pending
BUN Pending
Creatinine Pending
Glucose Pending
Calcium Pending
Total Bilirubin Pending
AST Pending
ALT Pending
Alkaline Phosphatase Pending
Vital Signs:
Vital Signs
Temp Pulse Resp BP Pulse Ox
98.1 F 60 18 164/75 97
05/10/25 07:09 05/10/25 07:09 05/10/25 07:09 05/10/25 07:09 05/10/25 07:09
I&O
05/09/25 05/10/25 05/11/25
06:59 06:59 06:59
Intake Total 4755 / 4755 2700 / 2700
Balance 4755 / 4755 2700 / 2700
[2025-05-10 09:10] LABS: ALT (SGPT) 51 U/L (0-35); AST (SGOT) 29 U/L (14-36); Albumin 3.1 g/dl (3.5-5.0); Alkaline Phosphatase 153 U/L (38-126); Blood Urea Nitrogen 3 mg/dl (7-17); Calcium 9.1 mg/dl (8.4-10.2); Carbon Dioxide 30 mmol/L (22-30); Chloride 109 mmol/L (98-107); Estimated Creatinine Clearance 72 ml/min; Glucose 86 mg/dl (70-99); Lipase 91 U/L (23-300); Magnesium 1.4 mg/dl (1.6-2.3); Potassium 3.7 mmol/L (3.5-5.1); Sodium 142 mmol/L (135-145); Total Protein 5.8 g/dl (6.3-8.2); eGFR > 60.00
--- NOTE | 2025-05-10 13:11 | W.PN.GI.CBS2 ---
Today's Communication / Plan
-
Low residual low-fat diet
Encourage ambulation
Assessment / Plan
-
69-year-old female past medical history of reflux on PPI and daily alcohol use and smoker presenting with abdominal pain and elevated bilirubin and transaminitis and CT with choledocholithiasis. Also with chronic diarrhea and dysphagia. She
proceeded for lap lakesha with cholangiogram . with Dr. Biswas and recommended follow up ERCP post procedure. She proceeded to ERCP with stone extraction with some post-op pain and lipase >4000.
05/06- [facility] ERCP'
-The esophagus was successfully intubated under direct vision
without detailed examination of the pharynx, larynx, and associated
structures.
- The major papilla was on the rim of a diverticulum.
- A filling defect consistent with a stone was seen on the
cholangiogram.
- The common bile duct was mildly dilated.
- Choledocholithiasis was found. Complete removal was accomplished
by biliary sphincterotomy and balloon extraction.
- A biliary sphincterotomy was performed.
- Major papilla was successfully dilated.
- The biliary tree was swept.
-choledocholithiasis s/p ERCP 05/06 with stone extraction
-post procedure pain with lipase >4000- inflammation vs pancreatitis
-chornic cholecystitis s/p lap lakesha 05/05
-hx GERD
-dysphagia
-diarrhea
-hx ETOH/tobacco use
-pulm nodule
Plan:
Repeat lipase was normal. LFT trending down. Etiology of her pain not very clear-postsurgical versus pancreatitis versus etc.
pain control as per medical team. Minimize opioid use
Encourage ambulation
Okay to advance to low residual low-fat diet
Total Time Spent with Patient (in minutes): 35
Subjective
Subjective
Date of Service: May 10, 2025
Patient is resting comfortably in the bed. Complains of some abdominal pain. Small amount of vomiting last night. Interested in trying regular food
Objective
Data Reviewed
Laboratory Data:
Laboratory Results
05/08/25 07:20
05/10/25 08:24
Laboratory Results
PT 12.7 Sec (11.4-14.6) 05/03/25 13:40
INR 0.92 05/03/25 13:40
Phosphorus 3.3 mg/dl (2.5-4.5) 05/06/25 07:11
Magnesium 1.4 mg/dl (1.6-2.3) L 05/10/25 08:24
Total Bilirubin 1.0 mg/dl (0.2-1.3) 05/10/25 08:24
AST 29 U/L (14-36) 05/10/25 08:24
ALT 51 U/L (0-35) H 05/10/25 08:24
Alkaline Phosphatase 153 U/L (38-126) H 05/10/25 08:24
Lipase 91 U/L (23-300) 05/10/25 08:24
Vital Signs and I&O:
Vital Signs
Temp Pulse Resp BP Pulse Ox
98.1 F 60 18 164/75 97
05/10/25 07:09 05/10/25 07:09 05/10/25 07:09 05/10/25 07:09 05/10/25 10:25
I&O
05/09/25 05/10/25 05/11/25
06:59 06:59 06:59
Intake Total 4755 / 4755 2700 / 2700
Balance 4755 / 4755 2700 / 2700
Physical Exam
Physical Exam
GI: Soft, Non Distended and Tender (Tenderness epigastric/right upper quadrant. No rigidity)
[2025-05-10] MEDS: MAGNESIUM SULFATE 50 IV (13:55)
[2025-05-10 15:29] VITALS: BP 155/72
[2025-05-10] MEDS: MELATONIN 5 MG PO (22:38)
[2025-05-10] MEDS: BENADRYL 25 MG PO (22:38)
[2025-05-10] MEDS: FLUSH (NSS) 2 FLUSH IV (22:40)
[2025-05-10 22:47] VITALS: BP 165/76
[2025-05-11] MEDS: D5/0.9% SODIUM CHLORIDE 1000 IV (05:13)
[2025-05-11] MEDS: ZOFRAN 4 MG IV ×2 (05:29→12:40)
[2025-05-11 07:52] LABS: ALT (SGPT) 31 U/L (0-35); AST (SGOT) 19 U/L (14-36); Albumin 2.6 g/dl (3.5-5.0); Alkaline Phosphatase 135 U/L (38-126); Blood Urea Nitrogen < 2 mg/dl (7-17); Calcium 8.5 mg/dl (8.4-10.2); Carbon Dioxide 24 mmol/L (22-30); Chloride 111 mmol/L (98-107); Estimated Creatinine Clearance 72 ml/min; Glucose 98 mg/dl (70-99); Magnesium 1.7 mg/dl (1.6-2.3); Potassium 3.2 mmol/L (3.5-5.1); Sodium 141 mmol/L (135-145); eGFR > 60.00
[2025-05-11 08:01] LABS: Total Protein 4.9 g/dl (6.3-8.2)
[2025-05-11] MEDS: ZOLOFT 50 MG PO (08:01)
[2025-05-11] MEDS: FOLVITE 1 MG PO (08:02)
[2025-05-11] MEDS: VITAMIN B1 100 MG PO (08:02)
[2025-05-11] MEDS: THERAGRAN 1 TABLET PO (08:02)
[2025-05-11] MEDS: NICODERM TRANSDERMAL 14 MG TRANSDERM (08:02)
[2025-05-11] MEDS: VITAMIN D3 (cholecalciferol) 25 MCG PO (08:02)
[2025-05-11] MEDS: CLARITIN 10 MG PO (08:02)
[2025-05-11 08:23] VITALS: BP 157/65
[2025-05-11] MEDS: KCL 40 MEQ PO (08:47)
--- NOTE | 2025-05-11 10:04 | W.PN.HOSP.TC ---
Today's Communication/Plan
-
Discharge today
Assessment / Plan
Assessment / Plan
HPI: 69yo F with PMHX of GERD, anxiety, severe claustrophobia, chronic epigastric pain came with worsening abd pain with diarrhea, now pain moved to RUQ and radiating to the back, found choledocholithiasis on CT with concern for cholangitis.
Accidental findings of R lung nodule.
A/P:
#Chronic cholecystitis
#Choledocholithiasis
#History of gastritis
Patient cannot tolerate MRI even with sedation
Appreciate general surgery input, status post laparoscopic cholecystectomy on 05/05
Appreciate GI input, status post ERCP with removal of stone and sphincterotomy/sphincteroplasty 05/06
Continue PPI, s/p IV Zosyn
#Post ERCP pancreatitis
Lipase now normal, GI advance to low-fat low residue diet
Tolerating a low-fat diet, medically stable for discharge
#Hypokalemia
Potassium 3.2 today, magnesium normal
Patient received potassium chloride 40 mEq p.o. x 2 prior to discharge
#Hypomagnesemia
Repleted and resolved
#Leukopenia
Monitor
#Diarrhea
C.diff and norovirus neg
Stool Cx NTD
Supportive care
#1.1 x 0.7 cm nodular opacity in the right middle lobe
Unknown to patient
Seen by pulmonology, who recommends additional workup including CT chest, pulmonary function testing and possibly bronchoscopy as outpatient
#Insomnia
Started melatonin/benadryl
#ASCVD
LDL 92
#DJD
#Hx of b/l JENNIFER
#Anxiety d/o
Continue SSRI
#Nicotine dependency
Advised smoking cessation
Nitroderm
DVT prophylaxis�subcu Lovenox
Full code
Physical Exam
General: No acute distress
HEENT: Normocephalic, Atraumatic, EOMI, MMM
Respiratory: Clear to Auscultation bilaterally
Cardiac: Normal S1/S2, Regular Rate and Rhythm
GI: Soft, appropriate jerson-incisional tenderness, incisions with ecchymosis, clean/dry/intact
Extremities: No Clubbing, Cyanosis, or Edema
Neuro: Nonfocal/Grossly Intact
Psych: Calm, Cooperative
Derm: Scattered ecchymosis on arms
Anticipated Discharge: Today
Subjective/Interval History
-
Date of Service: May 11, 2025
Patient reports that her previous abdominal pain has improved, now she feels like she has a constant tummy ache. She also reports diarrhea. Denies chest pain, denies shortness of breath. No fever, no vomiting.
Objective Data
-
Labs:
Laboratory Results
05/11/25
07:11
Sodium 141
Potassium 3.2 L
Chloride 111 H
Carbon Dioxide 24
BUN < 2 L
Creatinine 0.4 L
Glucose 98
Calcium 8.5
Total Bilirubin 0.7
AST 19
ALT 31
Alkaline Phosphatase 135 H
Vital Signs:
Vital Signs
Temp Pulse Resp BP Pulse Ox
98.3 F 56 16 157/65 94
05/11/25 08:23 05/11/25 08:23 05/11/25 08:23 05/11/25 08:23 05/11/25 08:23
I&O
05/10/25 05/11/25 05/12/25
06:59 06:59 06:59
Intake Total 2700 / 2700 4475 / 4475
Balance 2700 / 2700 4475 / 4475
--- NOTE | 2025-05-11 11:34 | W.PN.GI.CBS2 ---
Today's Communication / Plan
-
low fat diet
Assessment / Plan
-
69-year-old female past medical history of reflux on PPI and daily alcohol use and smoker presenting with abdominal pain and elevated bilirubin and transaminitis and CT with choledocholithiasis. Also with chronic diarrhea and dysphagia. She
proceeded for lap lakesha with cholangiogram . with Dr. Biswas and recommended follow up ERCP post procedure. She proceeded to ERCP with stone extraction with some post-op pain and lipase >4000.
05/06- Los ERCP'
-The esophagus was successfully intubated under direct vision
without detailed examination of the pharynx, larynx, and associated
structures.
- The major papilla was on the rim of a diverticulum.
- A filling defect consistent with a stone was seen on the
cholangiogram.
- The common bile duct was mildly dilated.
- Choledocholithiasis was found. Complete removal was accomplished
by biliary sphincterotomy and balloon extraction.
- A biliary sphincterotomy was performed.
- Major papilla was successfully dilated.
- The biliary tree was swept.
-choledocholithiasis s/p ERCP 05/06 with stone extraction
-post procedure pain with lipase >4000- inflammation vs pancreatitis
-chornic cholecystitis s/p lap lakesha 05/05
-hx GERD
-dysphagia
-diarrhea
-hx ETOH/tobacco use
-pulm nodule
Plan:
Repeat lipase was normal. LFT trending down. Etiology of her pain not very clear-postsurgical versus pancreatitis versus etc.
Minimize opioid use
Encourage ambulation
d/c IVF
continue low residual low-fat diet
No further recommendation at this point. Recommend follow-up with surgery as outpatient (postcholecystectomy). Will sign off
Total Time Spent with Patient (in minutes): 35
Subjective
Subjective
Date of Service: May 11, 2025
Feeling better. Tolerating low residual diet without nausea or vomiting. Abdominal pain is much better. Soft to loose stool
Objective
Data Reviewed
Laboratory Data:
Laboratory Results
05/08/25 07:20
05/11/25 07:11
Laboratory Results
PT 12.7 Sec (11.4-14.6) 05/03/25 13:40
INR 0.92 05/03/25 13:40
Phosphorus 3.3 mg/dl (2.5-4.5) 05/06/25 07:11
Magnesium 1.7 mg/dl (1.6-2.3) 05/11/25 07:11
Total Bilirubin 0.7 mg/dl (0.2-1.3) 05/11/25 07:11
AST 19 U/L (14-36) 05/11/25 07:11
ALT 31 U/L (0-35) 05/11/25 07:11
Alkaline Phosphatase 135 U/L (38-126) H 05/11/25 07:11
Lipase 91 U/L (23-300) 05/10/25 08:24
Vital Signs and I&O:
Vital Signs
Temp Pulse Resp BP Pulse Ox
98.3 F 56 16 157/65 94
05/11/25 08:23 05/11/25 08:23 05/11/25 08:23 05/11/25 08:23 05/11/25 08:23
I&O
05/10/25 05/11/25 05/12/25
06:59 06:59 06:59
Intake Total 2700 / 2700 4475 / 4475
Balance 2700 / 2700 4475 / 4475
Physical Exam
Physical Exam
GI: Soft, Non Distended and Tender (Mild tenderness on deep palpation. No guarding or rigidity)
--- NOTE | 2025-05-11 12:36 | W.DCSUMMARY ---
Discharge Summary
Discharge Data
Date of Admission: 05/03/25
Date of Discharge: 05/11/25
-
Pending Results: No
Hospital Course
Discharge diagnosis:
Chronic cholecystitis
Choledocholithiasis
Postprocedure pancreatitis
Acute hypokalemia
Acute hypomagnesemia
Leukopenia
Diarrhea
Right lung nodule
Insomnia
Anxiety
Consults: GI, general surgery, pulmonology
Procedures:
05/05/2025 laparoscopic cholecystectomy
05/06/2025 ERCP with removal of stone and sphincterotomy/sphincteroplasty
Hospital course:
69-year-old female with a past medical history of insomnia, anxiety, and gastroesophageal reflux disease was admitted for chronic cholecystitis and choledocholithiasis. Patient was seen in conjunction with general surgery, and underwent
laparoscopic cholecystectomy on 05/05/2025. She was also seen in conjunction with GI, and underwent ERCP with removal of stone and sphincterotomy/sphincteroplasty on 05/06/2025. Her hospital course was complicated by post ERCP pancreatitis. She was
treated with pain medications, IV fluids, bowel rest.
Patient was also found to have an incidental right lung nodule, and was seen in conjunction with pulmonology. She needs to follow-up with pulmonology in the office for outpatient workup.
After several days, her pancreatitis resolved, her lipase normalized. She did continue to have abdominal pain, but was able to tolerate a low-fat diet. She is medically stable and cleared by GI for discharge. She needs to establish care with a
PCP, as she does not have one. She also needs to follow-up with GI and general surgery in the office in 2 weeks.
Disposition: Home self-care
Discharge planning: Required 42 minutes
Discharge Plan
-
Patient Disposition: Home (Routine Discharge)
Discharge Diagnosis/Procedures: Chronic cholecystitis, choledocholithiasis. Laparoscopic cholecystectomy. ERCP
Condition: Good
Diet: As tolerated and Low Fat
Activity: No strenuous activity
Bathing Restrictions: OK to Shower
Activity Restrictions/Additional Instructions:
You have a pulmonary nodule. Please follow-up with pulmonology in the office for monitoring.
Please establish care with a PCP, you can use [facility].
Instructions following Laparoscopic Cholecystectomy
Please call [phone] if you have any questions or concerns after your surgery.
Wound Care:
Your incisions are covered with skin glue which will come off on it�s own in 5-10 days.
It is ok to shower the day after your surgery. Do not scrub the incisions, let soap and water wash over them and pat dry.
� Bruising around your incisions is normal.
� Using ice packs will help minimize this swelling.
� No swimming or soaking incisions for 1 week.
� Your stitches will dissolve and do not need to be removed.
Urinary retention:
If you are unable to urinate 6-8 hours after your surgery, please call [phone] to discuss further management.
Activity:
No heavy lifting more than 15 pounds for the next 3 weeks, then you may gradually lift heavier objects as tolerated by discomfort. Otherwise activity as tolerated by your comfort level.
Pain Management:
Use Tylenol, ibuprofen and ice packs to treat your pain.
� You may take 650 milligrams of Tylenol (Max 3 grams per day) every 6 hours, and 600 mg of ibuprofen also every 6 hours. (you can alternate them every 3 hours)
� You may use an ice pack to your incision as needed.
� If you still have pain not controlled by these measures, take your prescription pain medication as prescribed.
Medications:
You may resume your home medications.
Bowel Medications:
Prescription pain medication can make you constipated. If you take this medication, also take colace 100 mg twice daily (this is over the counter). If this is not sufficient, you may take Miralax (polyethylene glycol) to help move your bowels.
Diet:
After your procedure, there are no dietary restrictions. You may notice loose stools for up to 4 weeks after surgery with fatty meals, if this is the case you may have to adjust your diet as needed.
Driving restrictions:
No driving if you are taking prescription pain medication or if you think your normal reaction time and attentiveness has been slowed by your surgery.
Things to Look out for:
Worsening Abdominal pain, redness or drainage from incision
Call Doctor for:
Please call if you notice worsening redness or drainage from incision(s) lasting longer than 5 days after your surgery, any foul-smelling drainage from the incision, pain not controlled by pain medications, persistent nausea and vomiting, or for any
fevers greater than 101.3 F. The number for questions/concerns is [phone]
Follow-up:
Follow-up appointment will be scheduled with your surgeon in 3-4 weeks. Please call prior to your appointment if you have any questions or concerns. [phone]
Instructions: Quitting smoking for adults, Sleep insufficiency, Low-fat diet, Good sleep hygiene
Referrals:
Elly Ferrara MD [Active, Pulmonary Medicine] - in two weeks
Referral Note: For lung nodule.
Henri Biswas MD [Active, Surgical] - in two to four weeks
Divya Kendall MD [Active, Gastroenterology]
Referral Note: follow up with Dr. Kendall or [facility] to review with recent ERCP and difficulty with swallowing symptoms
Prescriptions:
New
acetaminophen [Tylenol Extra Strength] 500 mg Tablet
1,000 mg PO TIDPRN PRN (Reason: mild pain) Qty: 90 0RF
nicotine 14 mg/24 hr Patch 24 Hour
14 mg transdermal DAILY Qty: 28 0RF
oxycodone 5 mg Tablet
5 mg PO Q4HPRN PRN (Reason: severe pain) Qty: 10 0RF
melatonin 5 mg Tablet
5 mg PO DAILY@1999 Qty: 30 0RF
diphenhydramine HCl 25 mg Capsule
25 mg PO HS Qty: 30 0RF
thiamine mononitrate (vit B1) 100 mg Tablet
100 mg PO DAILY Qty: 30 0RF
ondansetron 4 mg tablet,disintegrating
4 mg PO Q6H PRN (Reason: nausea and vomiting) Qty: 20 0RF
Continued
therapeutic multivitamin Tablet
1 tab PO DAILY
sertraline 50 mg tablet
50 mg PO DAILY
loratadine 10 mg Tablet
10 mg PO DAILY
omeprazole magnesium [Prilosec OTC] 20 mg Tablet,Delayed Release (Dr/Ec)
20 mg PO DAILYPRN PRN (Reason: reflux)
cholecalciferol (vitamin D3) 25 mcg (1,000 unit) Tablet,Chewable
25 mcg PO DAILY
Discharge Orders:
Discharge Patient (As Directed); Ordered 05/11/25
Ordered By: Cortes Aden
Discharge Date and Time
Discharge Date/Time: 05/11/25 14:09
Print Language: CHILEAN
[2025-05-11] MEDS: KCL ELIXIR 40 MEQ PO (12:38)
[2025-05-11] MEDS: FLUZONE HIGH-DOSE 2025-26 0.5 ML IM (13:21)
--- NOTE | 2025-05-11 13:33 | CM ---
Pt for dc.
IMM issued. No needs identified.
[2025-05-12 09:19] LABS: Calprotectin, Fecal 54 ug/g (<=49)
[2025-05-13 13:10] LABS: tTG IgA Antibody 4.5 EU/ml (0-19); tTG IgG Antibody 12.0 EU/ml (0-19)
== END 2025-05-11 14:09 | disposition home or self-care (01) | DRG 417 ==
LOC: 2 NORTH 18:11
PROVIDERS: Internal Medicine; Nurse Practitioner Adult Health; Nurse Practitioner Family; Physician Assistant; Radiology Diagnostic Radiology; ADMITTING PHYSICIAN Hospitalist; ATTENDING PHYSICIAN Family Medicine; CONSULT PHYSICIAN Internal Medicine; CONSULT PHYSICIAN Internal Medicine Gastroenterology; CONSULT PHYSICIAN Surgery; EMERGENCY PHYSICIAN Emergency Medicine
PROC: 0FT44ZZ Resection of Gallbladder, Percutaneous Endoscopic Approach (ICD-10-PCS; 2025-05-05)
PROC: BF5C2Z0 Other Imaging of Hepatobiliary System, All using Fluorescing Agent, Intraoperative (ICD-10-PCS; 2025-05-05)
PROC: BF101ZZ Fluoroscopy of Bile Ducts using Low Osmolar Contrast (ICD-10-PCS; 2025-05-06)
PROC: 0FC98ZZ Extirpation of Matter from Common Bile Duct, Via Natural or Artificial Opening Endoscopic (ICD-10-PCS; 2025-05-06)
PROC: 3E02340 Introduction of Influenza Vaccine into Muscle, Percutaneous Approach (ICD-10-PCS; 2025-05-11)
DX: K80.67 Calculus of gallbladder and bile duct with acute and chronic cholecystitis with obstruction (principal); K85.90 Acute pancreatitis without necrosis or infection, unspecified; K91.89 Other postprocedural complications and disorders of digestive system; E87.6 Hypokalemia; E83.42 Hypomagnesemia; D72.819 Decreased white blood cell count, unspecified; G47.00 Insomnia, unspecified; F41.9 Anxiety disorder, unspecified; R91.1 Solitary pulmonary nodule; K21.9 Gastro-esophageal reflux disease without esophagitis; F17.210 Nicotine dependence, cigarettes, uncomplicated; F32.A Depression, unspecified; I10 Essential (primary) hypertension; K52.9 Noninfective gastroenteritis and colitis, unspecified; Y84.8 Other medical procedures as the cause of abnormal reaction of the patient, or of later complication, without mention of misadventure at the time of the procedure; Z79.899 Other long term (current) drug therapy; Z82.5 Family history of asthma and other chronic lower respiratory diseases; Z96.649 Presence of unspecified artificial hip joint; F10.90 Alcohol use, unspecified, uncomplicated; Z23 Encounter for immunization
CPT/HCPCS: 74177; 74300; 74330; 76000; 80053; 80061; 80306; 80307; 81003; 81015; 82010; 82077; 82248; 82705; 82784; 82962; 82977; 83516; 83690; 83735; 83993; 84100; 84443; 84484; 85025; 85027; 85610; 86231; 86803; 87045; 87046; 87086; 87324; 87427; 87449; 87798; 88304; 90662; 90677; 93005; 96361; 96374; 96375; 99285; 99406; A4300; C1726; C1769; G0008; G0009; Q9967

== ENCOUNTER → 2025-07-18 14:28 | Outpatient (REF) | payer MEDICARE, SELFPAY | LOC: HWRAD 14:28 | PROVIDERS: ATTENDING PHYSICIAN Internal Medicine; FAMILY PHYSICIAN Nurse Practitioner Primary Care | DX: R91.1 Solitary pulmonary nodule (principal) | CPT/HCPCS: 71250 ==